=== PATIENT | male | born 1985 | race Caucasian/White ===

== ENCOUNTER → 2016-04-27 | Outpatient (CLI) | payer OTHER ==
[~2016-04-27] MED LIST: ASTN; BECL1AER5 NAE; CLR10 PO; EFF/375 PO; FLUT0.15 NAE; FLUT1INH7 INH; LANS30CA12 PO; OLOP0.6S NAE; ONDA4TAB46 PO; OXYC-57 PO; PRVHFAIN INH; RIZA10TA18 PO; TOPI50TA16 PO; ZNTT/150 PO
[2016-04-27 15:38] LABS: C-REACTIVE PROTEIN 0.61 mg/dl (0-0.29); RHEUMATOID FACTOR < 10.0 U/mL (0-15)
[2016-04-27 15:52] LABS: LYME DISEASE AB IGG NEG (NEG); LYME DISEASE AB IGM NEG (NEG)
[2016-04-30 22:33] LABS: LUPUS ANTICOAGULANT** TC36573X Negative (Negative)
== END | disposition home or self-care (01) ==
LOC: C.LAB 13:05
PROVIDERS: ATTEND Psychiatry & Neurology Neurology
DX: G43.909 Migraine, unspecified, not intractable, without status migrainosus (principal); Z82.3 Family history of stroke

== ENCOUNTER → 2016-09-17 | Day surgery (SDC) | payer OTHER ==
[2016-09-07 07:51] VITALS: Ht 185.4 cm; Wt 70.5 kg
--- NOTE | 2016-09-16 08:38 | History and Physical: Surg Cnt ---
History & Physical Date Sep 16, 2016. Chief Complaint polyposis History of Present Illness The patient is a 30 year old male with complaints of Past Medical/Surgical History asthma Additional History Hepatic Disease: No Endocrine Disorder: No Kidney Disease: No Hypertension: No Heart Disease: No Bleeding Tendencies: No Infectious Diseases: No Allergies Coded Allergies: Aspirin (Verified Allergy, Unknown, HIVES, WHEEZING, SOB, 09/07/16) NSAIDs (Verified Allergy, Unknown, HIVES, WHEEZING, SOB, 09/07/16) Penicillins (Verified Allergy, Unknown, HIVES, WHEEZING, SOB, 09/07/16) Sulfamethoxazole w/Trimethoprim (Verified Allergy, Unknown, HIVES, WHEEZING, SOB, 09/07/16) Home Medications Scheduled Albuterol (Ventolin Hfa), 2 PUFFS INH BID Fluticasone Furoate-Vilanterol (Breo Ellipta 200-25 Mcg/INH), 1 PUFF INH BID Fluticasone Propionate (Nasal) (Flonase Allergy Relief), 2 SPRAYS SHLOMO BID Loratadine (Claritin), 10 MG PO QAM Olopatadine Hcl (Nasal) (Patanase), 2 SPRY SHLOMO BID Venlafaxine Hcl (Effexor), 37.5 MG PO QAM Scheduled PRN Rizatriptan Benzoate (Maxalt), 10 MG PO UD PRN for Migraine Physical Examination Skin: warm/dry, no rash Eyes: normal inspection, EOMI, sclerae normal ENT: normal ENT inspection, pharynx normal Head: normocephalic, atraumatic Neck: supple, no adenopathy, trachea midline Respiratory/Chest: lungs clear, normal breath sounds, no respiratory distress Cardiovascular: regular rate, rhythm, no edema, no murmur Abdomen / GI: normal bowel sounds, non tender Back: normal inspection Extremities: normal inspection, normal range of motion Neurologic/Psych: no motor/sensory deficits, alert, normal reflexes, oriented x 3 Diagnosis polyposis Plan of Treatment endoscopic sinus surgery
[~2016-09-17] VITALS: Ht 185.4 cm; Wt 70.5 kg
[~2016-09-17] MED LIST changes: +ATROPINE SULFATE 0.1 MG/ML 5ML SYR IV PRN; +CEFAZOLIN 1000MG/55 ML D5W IV SCH; +CEFAZOLIN SOD 1 GM VIAL ONE; +CIPR-255 PO; +DEXAMETHASONE SOD INJ 4 MG/ML VIAL ONE; +EpHEDrine SULFATE INJ 50 MG/ML AMP IV PRN; +EpINEphrine INJ 1MG/ML AMP 1 MG/ML AMP ONE; +FENTANYL CITRATE INJ 50 MCG/1 ML 2 ML VIAL ONE; +LACTATED RINGER'S 1000ML 1,000 ML IV SCH; +LIDO 2%/EPINEPHRINE 1:100000 20 ML VIAL INFIL ONE; +LIDOCAINE 4% MPF SOAK 5 ML = 1 DOSE TOP ONE; +LIDOCAINE HCL 2% 2 ML VIAL (20MG/ML) ONE; +METR500T PO; +MIDAZOLAM HCL 1 MG/ML 2ML VIAL ONE; -ONDA4TAB46 PO; +ONDANSETRON INJ 2 MG/ML 2 ML VIAL IV PRN; +ONDANSETRON INJ 2 MG/ML 2 ML VIAL ONE; +OXYCODONE/ACETAMINOPHEN 5-325 TAB PO PRN; +OXYMETAZOLINE HCL 0.05% NA SPR 15 ML BTL SCH; +PROMETHAZINE HCL INJ 6.25 MG in SODIUM CHLORIDE 0.9% 50ML 50 ML IV PRN; +PROPOFOL IV EMULSION 10 MG/ML 20 ML VIAL IV ONE; +SODIUM CHLORIDE 0.9% 1000ML 1,000 ML IV SCH; -TOPI50TA16 PO
--- NOTE | 2016-09-17 08:25 | History & Physical Bridge Note ---
H&P Re-Evaluation Bridge Note: I have examined the patient, reviewed the History & Physical and in the interval since the performance of the History & Physical I have noted the following changes of clinical significance: No changes noted
--- NOTE | 2016-09-17 10:13 | Discharge Instructions-SurgCtr ---
Discharge Instructions Date of Service Sep 17, 2016. Visit Reason for Visit: Chronic Sinusitis, Polyps Discharge Discharge Diagnosis / Problem: VANITA Discharge Goals Goal(s): Improve function Medications Stopped Medications Name(s): allergy to blood thinners Activity Recommendations Activity Limitations: resume your previous activity Anesthesia . Post Anesthesia Instructions: If you have had General Anesthesia or IV Sedation: * Do not drive today. * Resume driving when surgeon permits. * Do not make important decisions or sign legal documents today. * Call surgeon for: 1. Temperature elevations greater than 101 degrees F. 2. Uncontrollable pain. 3. Excessive bleeding. 4. Persistent nausea and vomiting. 5. Medication intolerance (nausea, vomiting or rash). * For nausea and vomiting use only clear liquids such as: tea, soda, bouillon until nausea subsides, then gradually increase diet as tolerated. * If you have any concerns or questions, call your surgeon's office. If physician is unavailable and it is an emergency, call 911 or go to the nearest emergency room. . Instructions / Follow-Up Instructions / Follow-Up ACTIVITY RECOMMENDATIONS: * Being up and around is good, but no strenuous activity, heavy lifting or physical exertion for one week. * Keep your head elevated 30 degrees when lying down or sleeping. * Do not blow your nose for 48 hours, sniff back instead. * Avoid hot showers. OVER THE COUNTER MEDICATIONS: * You may use Tylenol * Avoid aspirin or aspirin containing products, e.g. as they may increase bleeding. SPECIAL CARE INSTRUCTIONS: * Expect to have bloody drainage from your nose and/or down your throat for one to three days. Change drip pad as needed. * Begin irrigating your nose with saline solution today, at least six to ten times per day and sniff back to help remove old clots or crust. * You may experience nasal and facial congestion, pain and pressure, this is normal. * Please call with any significant and/or progressive pain, redness, swelling around the eyes, visual changes, fever of 101.5 degrees F, active bleeding or any problems or concerns. * If active bleeding occurs, spray the nose three times at one minute intervals with Afrin spray and call or cell phone: . If unable to reach the doctor, go to the nearest Emergency Department. Special Diet: * Avoid extremely hot fluids. FOLLOW UP VISIT: Follow-up Visit with Dr. Frye If not already scheduled, please call to schedule. Diet Recommendations Home Diet: no limitations Pending Studies Studies pending at discharge: no Medical Emergencies . Who to Call and When: Medical Emergencies: If at any time you feel your situation is an emergency, please call 911 immediately. . Non-Emergent Contact Non-Emergency issues call your: Primary Care Provider . . "Provider Documentation" section prepared by Jie Frye. . [place] Drug Monitoring Program Search Results: no issues identified
[2016-09-17] MEDS: FENTANYL CITRATE INJ 50 MCG/1 ML 2 ML VIAL IV PRN ×2 (11:42→12:03)
--- NOTE | 2016-09-17 11:49 | OPERATIVE REPORT ---
DATE OF OPERATION: 09/17/2016 PREOPERATIVE DIAGNOSIS: Chronic sinusitis and nasal polyposis. POSTOPERATIVE DIAGNOSIS: Same. PROCEDURE: Right and left frontal, right and left sphenoid, right and left total ethmoid and right and left maxillary sinus antrostomies. SURGEON: Dr. Frye. ANESTHESIA: General LMA. COMPLICATIONS: None. BLOOD LOSS: 30 mL. HISTORY OF PRESENT ILLNESS: A 30-year-old gentleman with significant recurrent chronic sinusitis with polyposis. He had 2 previous surgeries in [place] at the [facility]. He continues to have recurrence of polyps after surgery by me 2 years ago. OPERATION AND FINDINGS: PROCEDURE: The patient was brought to the operating room and placed in supine position. General anesthesia was induced using LMA, prepped, draped in usual sterile manner. Nose decongested using topical cottonoids with a solution of 4 mL of 4% Xylocaine with 1 mL of epinephrine. Injection of 2% Xylocaine 1:100,000 strength epinephrine was also used. The right sphenoid cannulated guidewire, dilated using the 6 mm balloon with Huy [place] computer guidance as was the left sphenoid. The sphenoid were irrigated and suctioned clean. The right nasal frontal duct was cannulated with guidewire, dilated using the 6 mm balloon. The guidewire was left in place as a marker. The shaver was coupled with Huy [place] device and used to remove the polyps from the entire ethmoid cavity and also freeing up the adhesions from the middle turbinates covering the nasofrontal duct opening up the nasofrontal duct. The maxillary sinus was opened by removing adhesions and polyps covering the wide antrostomy from his previous surgery. The sphenoid also had to be opened, removing adhesions on the medial side of the wide sphenoidotomy from his previous surgery connecting this to his natural sphenoid ostia. The left frontal sinusotomy, sphenoidotomy, total ethmoidectomy and maxillary sinus antrostomy was performed in a similar manner, again removing multiple polyps. Cultures were taken and Propel stents were placed with 1 mini stent in each nasofrontal duct and 1 regular stent extending in the ethmoid cavity extending from the sphenoid ostia to the maxillary sinus ostia. The patient tolerated the procedure well and was taken to recovery area in satisfactory condition. I attest to the content of the Intraoperative Record and any orders documented therein. Any exception s are noted below.
--- NOTE | 2016-09-17 12:58 | Anesthesia Progress Nt - [facility] ---
Anesthesia Post Op Note Date & Time Sep 17, 2016 at 12:57 Vital Signs Vital Signs Past 12 Hours Date Time Temp Pulse Resp B/P (MAP) Pulse Ox O2 Delivery O2 Flow Rate FiO2 09/17/16 12:25 36.5 67 16 127/85 (99) 99 Room Air 67 09/17/16 12:20 133/90 09/17/16 12:17 64 10 09/17/16 12:17 63 10 100 09/17/16 12:15 36.4 09/17/16 12:15 129/89 09/17/16 12:12 69 20 09/17/16 12:12 67 20 100 09/17/16 12:11 127/95 09/17/16 12:07 61 14 09/17/16 12:07 60 14 100 09/17/16 12:05 130/99 09/17/16 12:02 56 20 100 09/17/16 12:02 58 20 09/17/16 12:01 136/89 09/17/16 11:57 67 17 100 09/17/16 11:57 69 17 09/17/16 11:55 129/94 09/17/16 11:52 65 19 09/17/16 11:52 67 19 100 09/17/16 11:50 139/95 09/17/16 11:47 67 13 100 09/17/16 11:47 67 13 09/17/16 11:45 129/95 09/17/16 11:42 62 19 100 09/17/16 11:42 62 19 09/17/16 11:40 128/96 09/17/16 11:37 66 15 09/17/16 11:37 63 15 100 09/17/16 11:35 140/99 09/17/16 11:32 74 17 94 09/17/16 11:32 73 17 09/17/16 11:30 36.3 70 16 135/97 100 Humidified Oxygen 8 Diffusion Mask 09/17/16 09:03 36.4 87 16 113/78 (90) 97 Room Air Notes Mental Status: alert / awake / arousable, participated in evaluation Pt Amnestic to Procedure: Yes Nausea / Vomiting: adequately controlled Pain: adequately controlled Airway Patency, RR, SpO2: stable & adequate BP & HR: stable & adequate Hydration State: stable & adequate Anesthetic Complications: no major complications apparent
[2016-09-17 13:00] VITALS: BP 131/84; PULSE 61; O2SAT 98
== END | disposition home or self-care (01) ==
LOC: X.SURG 08:48
PROVIDERS: ATTEND Otolaryngology
DX: J32.9 Chronic sinusitis, unspecified (principal); J33.9 Nasal polyp, unspecified; J45.909 Unspecified asthma, uncomplicated; Z88.0 Allergy status to penicillin; Z88.2 Allergy status to sulfonamides; Z68.20 Body mass index [BMI] 20.0-20.9, adult; Z87.891 Personal history of nicotine dependence

== ENCOUNTER 2016-12-03 12:22 | Emergency (ER) | payer OTHER ==
[~2016-12-03] VITALS: Ht 180.3 cm; Wt 65.6 kg
[~2016-12-03 12:22] MED LIST changes: -ATROPINE SULFATE 0.1 MG/ML 5ML SYR IV PRN; -BECL1AER5 NAE; -CEFAZOLIN 1000MG/55 ML D5W IV SCH; -CEFAZOLIN SOD 1 GM VIAL ONE; -CIPR-255 PO; -DEXAMETHASONE SOD INJ 4 MG/ML VIAL ONE; -EpHEDrine SULFATE INJ 50 MG/ML AMP IV PRN; -EpINEphrine INJ 1MG/ML AMP 1 MG/ML AMP ONE; -FENTANYL CITRATE INJ 50 MCG/1 ML 2 ML VIAL ONE; -LACTATED RINGER'S 1000ML 1,000 ML IV SCH; -LANS30CA12 PO; -LIDO 2%/EPINEPHRINE 1:100000 20 ML VIAL INFIL ONE; -LIDOCAINE 4% MPF SOAK 5 ML = 1 DOSE TOP ONE; -LIDOCAINE HCL 2% 2 ML VIAL (20MG/ML) ONE; -METR500T PO; -MIDAZOLAM HCL 1 MG/ML 2ML VIAL ONE; -ONDANSETRON INJ 2 MG/ML 2 ML VIAL IV PRN; -ONDANSETRON INJ 2 MG/ML 2 ML VIAL ONE; -OXYCODONE/ACETAMINOPHEN 5-325 TAB PO PRN; -OXYMETAZOLINE HCL 0.05% NA SPR 15 ML BTL SCH; -PROMETHAZINE HCL INJ 6.25 MG in SODIUM CHLORIDE 0.9% 50ML 50 ML IV PRN; -PROPOFOL IV EMULSION 10 MG/ML 20 ML VIAL IV ONE; -SODIUM CHLORIDE 0.9% 1000ML 1,000 ML IV SCH; -ZNTT/150 PO
[2016-12-03 12:25] VITALS: TEMP 36.4; Ht 180.3 cm; Wt 65.6 kg
[2016-12-03] MEDS ORDERED: SODIUM CHLORIDE 0.9% 1000ML 1,000 ML IV STA (12:41)
[2016-12-03] MEDS ORDERED: MoRPHine SULFATE 4 MG/ML 1 ML CARP\\VIAL IV STA ×2 (12:41→13:51)
[2016-12-03] MEDS ORDERED: ONDANSETRON INJ 2 MG/ML 2 ML VIAL IV STA (12:41)
--- NOTE | 2016-12-03 12:58 | EMERGENCY ROOM VISIT NOTE ---
History First contact with patient: 12:31 Chief Complaint: ABDOMINAL PAIN Stated Complaint: ABDOMINAL PAIN Nursing Triage Summary: abdominal pain and nausea for the past 5 days. I tried to get my meds refilled but faby lovett silverio no sent the perscriptions History of Present Illness The patient is a 31 year old male who presents to the Emergency Room with complaints of epigastric and generalized abdominal pain for the past 5 days. He reports the pain as sharp and stabbing, radiates from the epigastric area to the left upper quadrant and down towards the left lower abdomen, 8/10. He also reports associated nausea with vomiting bile last night. Some associated chills , but denies any fevers, denies diarrhea or constipation or blood in the stool, denies urinary symptoms. He does report a history of stomach ulcers requiring hospital admission about one year ago, he does not know why they admitted him. He states that this pain feels similar to the last time when he had ulcers in his stomach. He denies any NSAID use, alcohol use, and states he takes Pepcid daily. He reports history of cholecystectomy. Review of Systems A complete 10 point review of systems was reviewed with the patient with pertinent positives and negatives as per history of present illness. All else were negative. Past Medical/Surgical History Peptic ulcer disease, GERD, Samter's triad syndrome, cholecystectomy, severe allergies Social History Smoking Status: Never Smoker Current/Historical Medications Scheduled Albuterol (Ventolin Hfa), 2 PUFFS INH BID Azelastine Hcl (Astelin Nasal [place]), 1-2 SPRAYS NA BID Fluticasone Furoate-Vilanterol (Breo Ellipta 200-25 Mcg/INH), 1 PUFF INH BID Fluticasone Propionate (Nasal) (Flonase Allergy Relief), 2 SPRAYS SHLOMO BID Loratadine (Claritin), 10 MG PO QAM Venlafaxine Hcl (Effexor), 37.5 MG PO QAM Scheduled PRN Rizatriptan Benzoate (Maxalt), 10 MG PO UD PRN for Migraine Allergies Coded Allergies: Aspirin (Verified Allergy, Severe, HIVES, WHEEZING, SOB, 12/03/16) NSAIDs (Verified Allergy, Severe, HIVES, WHEEZING, SOB, 12/03/16) Penicillins (Verified Allergy, Severe, HIVES, WHEEZING, SOB, 12/03/16) Sulfamethoxazole w/Trimethoprim (Verified Allergy, Severe, HIVES, WHEEZING , SOB, 12/03/16) Physical Exam Vital Signs Date Time Temp Pulse Resp B/P (MAP) Pulse Ox O2 Delivery O2 Flow Rate FiO2 12/03/16 16:01 68 18 127/83 98 Room Air 12/03/16 14:26 83 18 140/82 100 Room Air 12/03/16 13:54 95 20 125/84 100 Room Air 12/03/16 13:27 72 12/03/16 13:06 83 20 133/90 99 Room Air 12/03/16 12:25 36.4 96 18 132/89 98 Room Air Physical Exam CONSTITUTIONAL: No acute distress, but does appear to be in pain. Mildly dehydrated. Alert and oriented X 4 with normal affect. HEENT: Normocephalic, atraumatic. Pupils equal, round and reactive to light, EOMI. TMs normal. Pharynx normal. Dry mucous membranes. NECK: Supple, full active range of motion without discomfort. RESPIRATORY: Clear to auscultation bilaterally with no wheezing, crackles, rhonchi or stridor. Equal expansion bilaterally. CARDIOVASCULAR: Regular rate and rhythm with no murmurs, rubs or gallops. Normal peripheral perfusion. No edema. GASTROINTESTINAL: Diffuse abdominal tenderness in all quadrants, most tender in the epigastric and left upper quadrant to palpation, with some guarding, negative for rebound tenderness. Soft, nondistended. Hypoactive bowel sounds present in all quadrants. MUSCULOSKELETAL: Full range of motion of all joints without discomfort. INTEGUMENTARY: No rash or other significant dermatologic conditions noted. NEUROLOGIC: Cranial nerves II-XII grossly intact. No focal neurologic deficits noted. Medical Decision & Procedures ER Provider Diagnostic Interpretation: CHEST 1 VW FRONT-NOT PORTABLE CLINICAL HISTORY: upright chest, eval abd free air COMPARISON STUDY: No previous studies for comparison. FINDINGS: Lungs are considered clear. Increase in density left base secondary to partial elevation left hemidiaphragm versus left basilar atelectasis. No secondary evidence for free air. IMPRESSION: No evidence for free air. Atelectasis versus elevation left hemidiaphragm left lung base. ----- CT OF THE ABDOMEN AND PELVIS WITH CONTRAST CLINICAL HISTORY: Acute epigastric pain. History of gastric ulcers. Evaluate for perforation. COMPARISON STUDY: None. TECHNIQUE: Following IV administration of 93 mL of Optiray-320, axial images of the abdomen and pelvis were obtained from the lung bases to the proximal femurs. Images were reviewed in the axial, sagittal, and coronal planes. IV contrast was administered without complication. A dose lowering technique was utilized adhering to the principles of ALARA. Oral contrast was administered. CT DOSE: 434.97 mGycm FINDINGS: There is no biliary ductal dilatation status post cholecystectomy. The liver, spleen, adrenal glands, kidneys and pancreas are normal with the exception of a 1 cm left renal cyst. There is no pancreatic ductal dilatation. There is no peripancreatic infiltration. No pneumatosis, free air or portal venous gas is present. The caliber and wall thickness of small and large bowel are normal. The appendix is normal. There is no free fluid. There is no lymphadenopathy. Skeletal structures are unremarkable. IMPRESSION: 1. No acute process within the abdomen or pelvis. No pneumoperitoneum. 2. 1 cm left renal cyst. 3. No biliary ductal dilatation status post cholecystectomy. 4. Normal appendix. Laboratory Results 12/03/16 12:50 Red Blood Count 4.52, Mean Corpuscular Volume 99.1, Mean Corpuscular Hemoglobin 33.6, Mean Corpuscular Hemoglobin Concent 33.9, Mean Platelet Volume 10.1, Neutrophils (%) (Auto) 63.6, Lymphocytes (%) (Auto) 15.6, Monocytes (%) (Auto) 9.5, Eosinophils (%) (Auto) 9.8, Basophils (%) (Auto) 0.4, Neutrophils # (Auto) 3.56, Lymphocytes # (Auto) 0.87, Monocytes # (Auto) 0.53, Eosinophils # (Auto) 0.55, Basophils # (Auto) 0.02 12/03/16 12:50 Test 12/03/16 12:50 12/03/16 12:55 White Blood Count 5.59 K/uL (4.8-10.8) Red Blood Count 4.52 M/uL (4.7-6.1) Hemoglobin 15.2 g/dL (14.0-18.0) Hematocrit 44.8 % (42-52) Mean Corpuscular Volume 99.1 fL (80-100) Mean Corpuscular Hemoglobin 33.6 pg (25-34) Mean Corpuscular Hemoglobin Concent 33.9 g/dl (32-36) Platelet Count 202 K/uL (130-400) Mean Platelet Volume 10.1 fL (7.4-10.4) Neutrophils (%) (Auto) 63.6 % Lymphocytes (%) (Auto) 15.6 % Monocytes (%) (Auto) 9.5 % Eosinophils (%) (Auto) 9.8 % Basophils (%) (Auto) 0.4 % Neutrophils # (Auto) 3.56 K/uL (1.4-6.5) Lymphocytes # (Auto) 0.87 K/uL (1.2-3.4) Monocytes # (Auto) 0.53 K/uL (0.11-0.59) Eosinophils # (Auto) 0.55 K/uL (0-0.5) Basophils # (Auto) 0.02 K/uL (0-0.2) RDW Standard Deviation 43.6 fL (36.4-46.3) RDW Coefficient of Variation 12.1 % (11.5-14.5) Immature Granulocyte % (Auto) 1.1 % Immature Granulocyte # (Auto) 0.06 K/uL (0.00-0.02) Anion Gap 7.0 mmol/L (3-11) Est Creatinine Clear Calc Drug Dose 101.2 ml/min Estimated GFR () 118.0 Estimated GFR (Non- 101.8 BUN/Creatinine Ratio 14.2 (10-20) Calcium Level 9.4 mg/dl (8.5-10.1) Total Bilirubin 0.8 mg/dl (0.2-1) Direct Bilirubin 0.2 mg/dl (0-0.2) Aspartate Amino Transf (AST/SGOT) 22 U/L (15-37) Alanine Aminotransferase (ALT/SGPT) 26 U/L (12-78) Alkaline Phosphatase 67 U/L (45-117) Total Protein 7.8 gm/dl (6.4-8.2) Albumin 4.1 gm/dl (3.4-5.0) Lipase 88 U/L (73-393) Urine Color DK YELLOW Urine Appearance CLEAR (CLEAR) Urine pH 5.5 (4.5-7.5) Urine Specific [place] > 1.045 (1.000-1.030) Urine Protein 1+ (NEG) Urine Glucose (UA) NEG (NEG) Urine Ketones NEG (NEG) Urine Occult Blood NEG (NEG) Urine Nitrite NEG (NEG) Urine Bilirubin NEG (NEG) Urine Urobilinogen NEG (NEG) Urine Leukocyte Esterase NEG (NEG) Urine WBC (Auto) 1-5 /hpf (0-5) Urine RBC (Auto) 0-4 /hpf (0-4) Urine Hyaline Casts (Auto) 5-10 /lpf (0-5) Urine Epithelial Cells (Auto) 20-30 /lpf (0-5) Urine Bacteria (Auto) NEG (NEG) Medications Administered Medications (Trade) Dose Ordered Sig/Manuela Route Start Time Stop Time Status Last Admin Dose Admin Sodium Chloride 1,000 ml @ 999 mls/hr Q1H1M STAT IV 12/03/16 12:41 12/03/16 13:41 DC 12/03/16 13:05 999 MLS/HR Ondansetron HCl (Zofran Inj) 4 mg NOW STAT IV 12/03/16 12:41 12/03/16 12:45 DC 12/03/16 13:04 4 MG Morphine Sulfate (MoRPHine SULFATE INJ) 4 mg NOW STAT IV 12/03/16 12:41 12/03/16 12:45 DC 12/03/16 13:04 4 MG Morphine Sulfate (MoRPHine SULFATE INJ) 4 mg NOW STAT IV 12/03/16 13:51 12/03/16 13:52 DC 12/03/16 13:52 4 MG Ranitidine HCl (zANTac IV) 50 mg NOW STAT IV 12/03/16 14:01 12/03/16 14:03 DC 12/03/16 14:24 50 MG Al Hydroxide/Mg Hydroxide (Maalox Susp) 30 ml STK-MED ONCE .ROUTE 12/03/16 16:03 12/03/16 16:04 DC 12/03/16 16:08 30 ML Lidocaine HCl (Viscous Lidocaine 2% Soln) 20 ml STK-MED ONCE .ROUTE 12/03/16 16:03 12/03/16 16:04 DC 12/03/16 16:08 20 ML Medical Decision CC: Patient presenting with complaint of epigastric pain, nausea and vomiting Interpretation of Labs: No leukocytosis, no anemia, no significant joint abnormalities, normal renal function, normal liver enzymes and lipase, UA shows high specific gravity, otherwise negative. Differential Diagnosis: Includes, but not limited to gastritis, gastroenteritis , pancreatitis, PUD, choledocholithiasis, diverticulitis, small bowel obstruction, bowel perforation, among others. Medication Reconciliation: I attest that I have personally reviewed the patient' s current medication list. Vital signs review: I reviewed the patient's vital signs and interpret them as follows: T: Afebrile; BP: Initially Hypertensive, improved with pain control; HR: Tachycardic; RR: Within normal limits; Pulse Ox: Within normal limits on room air. Summary: Patient was evaluated at bedside, history of physical exam performed. Patient is alert and in no acute distress, but does appear quite uncomfortable. He is resting in a stretcher, holding his upper abdomen. He is most tender in the epigastric and left upper quadrant of his abdomen, but does complain of diffuse generalized tenderness of the abdomen. Abdomen is soft and nondistended, not rigid or any peritoneal signs noted. No rebound tenderness. Orders were placed at bedside for labs, UA, IV fluids for hydration, IV pain and nausea medications, upright chest x-ray to evaluate for free air, CT abdomen /pelvis with IV and oral contrast to evaluate for bowel perforation, small bowel obstruction, etc. Patient discussed with Dr. Atwood, who agrees with my assessment and plan. Labs reviewed as above, no significant abnormalities. Chest x-ray reviewed, no evidence of free air. CT imaging reviewed, no acute abnormalities to explain patient's pain. Patient reassessed multiple times throughout ED stay, he did initially require multiple doses of nausea and pain medications, but did eventually have improvement. He was also given a GI cocktail, which she states improved his pain. I updated the patient on all results and plan for discharge. I informed him that he would need to follow up closely with his GI provider, Dr. Aguilera, and that he may need to have an endoscopy procedure for further evaluation of his symptoms. At this point, the patient became angry stating, "so you're not been a do anything for me?" and started pulling off his EKG stickers and trying to remove his IV. He also stated that his GI doctor refused to refill his Prevacid and he has been out of it for several days and has not been taking it. I did discuss with the patient that his antacid medications are available over- the-counter, and encouraged him to pick these up and restart taking them. Patient agreed to plan of restarting his Prevacid and to calling his GI doctor for follow-up appointment. I did also discuss return precautions with the patient, he verbalized understanding. She was discharged home in stable condition and ambulatory. Impression Primary Impression: Epigastric abdominal pain Additional Impression: Nausea and vomiting Departure Information Dispostion Home / Self-Care Condition GOOD Referrals Alexandra Fletcher M.D. (PCP) Giovana Aguilera D.O. Patient Instructions ED PUD Vs Gastritis, My [facility] Additional Instructions You have been treated in the Emergency Department your Abdominal Pain. Laboratory results and imaging studies have ruled out any emergent causes for your abdominal pain which would warrant admission or surgery. You should continue taking Prevacid as previously prescribed. This is now an [id number] medication and you can buy at any pharmacy without a prescription. You should also start taking ranitidine 150 mg twice a day. This is also over- the-counter and is a different type of antacid medication that should help to control your symptoms better while you restart the Prevacid. For breakthrough symptoms of stomach pain, you may try Maalox or Mylanta to help soothe your stomach. Take as prescribed on the bottle. Avoid taking NSAIDs, as these may aggravate your stomach pain and symptoms. Drink plenty of fluids and stay well hydrated. Please call your GI doctor tomorrow to set up a follow-up appointment. You may need to have an endoscopy procedure to further evaluate her symptoms, this should be set up through your GI doctor. Return to the emergency department if your symptoms persist despite treatment plan outlined above or if the following symptoms occur: Severe worsening pain, fevers/chills, worsening nausea/vomiting, vomiting bright red blood, blood in your stool or urine. Work Instructions Return To Work: 2 days Problem Qualifiers Additional Impression: Nausea and vomiting Vomiting type: unspecified Vomiting Intractability: non-intractable Qualified Codes: R11.2 - Nausea with vomiting, unspecified
[2016-12-03 13:08] LABS: URINE APPEARANCE CLEAR (CLEAR); URINE COLOR DK YELLOW; URINE EPITHELIAL CELL AUTO 20-30 /lpf (0-5); URINE NITRITE NEG (NEG); URINE PH 5.5 (4.5-7.5); URINE SPECIFIC GRAVITY > 1.045 (1.000-1.030); UROBILINOGEN NEG (NEG); ZZUR CULT IF INDIC CLEAN CATCH NO
[2016-12-03 13:12] LABS: BASO % 0.4 %; BASO ABS # 0.02 K/uL (0-0.2); COMPLETE YES; EOS % 9.8 %; HEMATOCRIT 44.8 % (42-52); IG% 1.1 %; LYMPH % 15.6 %; LYMPH ABS # 0.87 K/uL (1.2-3.4); MEAN CELL VOLUME 99.1 fL (80-100); MEAN CORPUSCULAR HEMOGLOBIN 33.6 pg (25-34); MEAN CORPUSCULAR HGB CONC 33.9 g/dl (32-36); MEAN PLATELET VOLUME 10.1 fL (7.4-10.4); MONO % 9.5 %; NEUT % 63.6 %; PLATELET COUNT 202 K/uL (130-400); RED BLOOD COUNT 4.52 M/uL (4.7-6.1); WHITE BLOOD COUNT 5.59 K/uL (4.8-10.8)
[2016-12-03 13:20] LABS: MANUAL MICROSCOPIC REQUIRED? NO; REVIEW REQ? NO; URINE BILIRUBIN NEG (NEG)
[2016-12-03 13:30] LABS: BUN/CREATININE RATIO 14.2 (10-20); CALCIUM 9.4 mg/dl (8.5-10.1); CREATININE 0.99 mg/dl (0.60-1.40); POTASSIUM 4.2 mmol/L (3.5-5.1)
[2016-12-03] MEDS ORDERED: RANITIDINE HCL 50 MG/100 ML D5W IV STA (14:01)
--- NOTE | 2016-12-03 14:16 | DIAGNOSTIC IMAGING REPORT ---
CHEST 1 VW FRONT-NOT PORTABLE CLINICAL HISTORY: upright chest, eval abd free air COMPARISON STUDY: No previous studies for comparison. FINDINGS: Lungs are considered clear. Increase in density left base secondary to partial elevation left hemidiaphragm versus left basilar atelectasis. No secondary evidence for free air. IMPRESSION: No evidence for free air. Atelectasis versus elevation left hemidiaphragm left lung base. The above report was generated using voice recognition software. It may contain grammatical, syntax or spelling errors. Electronically signed by: Boaz Baker M.D. 12/03/2016 2:14 PM Dictated Date/Time: 12/03/2016 2:13 PM
[2016-12-03] MEDS ORDERED: OPTIRAY 320 IV PRN (15:00)
--- NOTE | 2016-12-03 15:32 | DIAGNOSTIC IMAGING REPORT ---
CT OF THE ABDOMEN AND PELVIS WITH CONTRAST CLINICAL HISTORY: Acute epigastric pain. History of gastric ulcers. Evaluate for perforation. COMPARISON STUDY: None. TECHNIQUE: Following IV administration of 93 mL of [id number], axial images of the abdomen and pelvis were obtained from the lung bases to the proximal femurs. Images were reviewed in the axial, sagittal, and coronal planes. IV contrast was administered without complication. A dose lowering technique was utilized adhering to the principles of ALARA. Oral contrast was administered. CT DOSE: 434.97 mGycm FINDINGS: There is no biliary ductal dilatation status post cholecystectomy. The liver, spleen, adrenal glands, kidneys and pancreas are normal with the exception of a 1 cm left renal cyst. There is no pancreatic ductal dilatation. There is no peripancreatic infiltration. No pneumatosis, free air or portal venous gas is present. The caliber and wall thickness of small and large bowel are normal. The appendix is normal. There is no free fluid. There is no lymphadenopathy. Skeletal structures are unremarkable. IMPRESSION: 1. No acute process within the abdomen or pelvis. No pneumoperitoneum. 2. 1 cm left renal cyst. 3. No biliary ductal dilatation status post cholecystectomy. 4. Normal appendix. Electronically signed by: Devon Fletcher M.D. 12/03/2016 3:31 PM Dictated Date/Time: 12/03/2016 3:26 PM
[2016-12-03] MEDS ORDERED: GI COCKTAIL PO STA (15:58)
[2016-12-03 16:01] VITALS: BP 127/83; PULSE 68; O2SAT 98
[2016-12-03] MEDS ORDERED: ALUMINUM/MAGNESIUM SUSP 30 ML UDC ONE (16:03)
[2016-12-03] MEDS ORDERED: LIDOCAINE HCL 2% VISC SOLN 20 ML UDC ONE (16:03)
[2016-12-07] MEDS ORDERED: LANS30CA12 PO (09:20)
[2016-12-07] MEDS ORDERED: ZNTT/150 PO (09:20)
== END 2016-12-03 16:15 | disposition home or self-care (01) ==
LOC: C.EDB 12:23
DX: R10.13 Epigastric pain (principal); R11.2 Nausea with vomiting, unspecified; Z90.49 Acquired absence of other specified parts of digestive tract; K27.9 Peptic ulcer, site unspecified, unspecified as acute or chronic, without hemorrhage or perforation; K21.9 Gastro-esophageal reflux disease without esophagitis; J98.8 Other specified respiratory disorders; Z79.899 Other long term (current) drug therapy; E86.0 Dehydration

== ENCOUNTER → 2016-12-08 | Day surgery (SDC) | payer OTHER ==
[2016-12-07 09:20] VITALS: Ht 185.4 cm; Wt 70.5 kg
[~2016-12-08] VITALS: Ht 185.4 cm; Wt 70.5 kg
[~2016-12-08] MED LIST changes: +ALUMINUM/MAGNESIUM SUSP 18 ML, LIDOCAINE HCL 2% VISCOUS SOLN 6 ML, BARCODE IDENTIFIER 1 EA PO ONE; +FENTANYL CITRATE INJ 50 MCG/1 ML 2 ML VIAL ONE; +GI COCKTAIL PO ONE; +LANS30CA12 PO; -OLOP0.6S NAE; +ONDANSETRON INJ 2 MG/ML 2 ML VIAL ONE; -OXYC-57 PO; +PROPOFOL IV EMULSION 10 MG/ML 20 ML VIAL IV ONE; +ZNTT/150 PO
[2016-12-08 11:07] VITALS: TEMP 36.9
--- NOTE | 2016-12-08 11:47 | Endo History and Physical ---
History & Physical Date of Service: Dec 08, 2016. Chief Complaint: Reflux, RUQ pain, N/V, Eosinophilic Referring Physician: Alexandra Fletcher History of Present Illness 31 yo CM who presents for EGD secondary to RUQ abdominal pain and GERD. Past Surgical History Hx Cardiac Surgery: No Hx Internal Defibrillator: No Hx Pacemaker: No Hx Abdominal Surgery: Yes (LAP DELILAH) Hx of Implantable Prosthesis: No Hx Post-Op Nausea and Vomiting: No Hx Cancer Surgery: No Hx Thoracic Surgery: No Hx Orthopedic: No Hx Urinary Tract Surgery: No Family History IBD Social History Smoking Status: Former Smoker Hx Substance Use: No Hx Alcohol Use: Yes (OCCASIONALLY) Allergies Coded Allergies: Aspirin (Verified Allergy, Severe, HIVES, WHEEZING, SOB, 12/07/16) NSAIDs (Verified Allergy, Severe, HIVES, WHEEZING, SOB, 12/07/16) Penicillins (Verified Allergy, Severe, HIVES, WHEEZING, SOB, 12/07/16) Sulfamethoxazole w/Trimethoprim (Verified Allergy, Severe, HIVES, WHEEZING , SOB, 12/07/16) Current Medications Reported Home Medications Medications Dose Route/Sig Max Daily Dose Days Date Category Dose Instructions Zantac (Ranitidine HCl) 150 Mg Tab 150 Mg PO QAM 12/07/16 Reported Prevacid (Lansoprazole) 30 Mg Capcr 30 Mg PO QAM 12/07/16 Reported Astelin Nasal [place] (Azelastine Hcl) 200 Sprays/30 Ml [place] 1-2 Sprays NA BID 09/17/16 Rx Effexor (Venlafaxine Hcl) 37.5 Mg Tab 37.5 Mg PO QAM 09/07/16 Reported Maxalt (Rizatriptan Benzoate) 10 Mg Tab 10 Mg PO UD PRN 01/31/16 Reported May take up to 3 times per day if needed Ventolin Hfa (Albuterol) 60 Puffs/5400 Mcg Aers 2 Puffs INH BID 01/22/16 Reported 90 MCG 200 METERED INH LISTED ON INHALER Claritin (Loratadine) 10 Mg Tab 10 Mg PO QAM 09/12/15 Reported Flonase Allergy Relief (Fluticasone Propionate (Nasal)) 50 Mcg/Act Spr 2 Sprays [place] BID 09/12/15 Reported Breo Ellipta 200-25 Mcg/INH (Fluticasone Furoate-Vilanterol) 1 Inh Inh 1 Puff INH BID 09/12/15 Reported Vital Signs Weight (Kilograms): 70.45 Height (Feet): 6 Height (Inches): 1 Date Time Temp Pulse Resp B/P (MAP) Pulse Ox O2 Delivery O2 Flow Rate FiO2 12/08/16 11:07 36.9 81 20 127/76 (93) 96 Room Air Physical Exam General Appearance: WD/WN, no apparent distress Respiratory/Chest: Auscultation: breath sounds normal Cardiovascular: Heart Auscultation: RRR Abdomen: Bowel Sounds: normal Inspection & Palpation: soft, non-distended, no tenderness, guarding & rebound Assessment and Plan Assessment: 31 yo CM who presents for EGD secondary to RUQ abdominal pain and GERD. Plan: Proceed with EGD.
--- NOTE | 2016-12-08 12:04 | GI REPORT ---
Procedure Date: 12/08/2016 11:47 AM Procedure: Upper GI endoscopy Indications: Abdominal pain in the right upper quadrant, Suspected gastro-esophageal reflux disease, Nausea with vomiting Medicines: Monitored Anesthesia Care Complications: No immediate complications. Estimated Blood Loss: Estimated blood loss: none. Procedure: Pre-Anesthesia Assessment: - Prior to the procedure, a History and Physical was performed, and patient medications and allergies were reviewed. The patient's tolerance of previous anesthesia was also reviewed. The risks and benefits of the procedure and the sedation options and risks were discussed with the patient. All questions were answered, and informed consent was obtained. Prior Anticoagulants: The patient has taken no previous anticoagulant or antiplatelet agents. ASA Grade Assessment: II - A patient with mild systemic disease. After reviewing the risks and benefits, the patient was deemed in satisfactory condition to undergo the procedure. After obtaining informed consent, the endoscope was passed under direct vision. Throughout the procedure, the patient's blood pressure, pulse, and oxygen saturations were monitored continuously. The scope was introduced through the mouth, and advanced to the second part of duodenum. The upper GI endoscopy was accomplished without difficulty. The patient tolerated the procedure well. Findings: The esophagus was normal. A medium amount of food (residue) was found on the greater curvature of the stomach. Localized mild inflammation characterized by erythema was found in the gastric antrum. Biopsies were taken with a cold forceps for histology. The examined duodenum was normal. Biopsies for histology were taken with a cold forceps for evaluation of celiac disease. Impression: - Normal esophagus. - A medium amount of food (residue) in the stomach. - Gastritis. Biopsied. - Normal examined duodenum. Biopsied. Recommendation: - Resume previous diet. - Continue present medications. - Await pathology results. - Do a gastric emptying study at appointment to be scheduled. - Return to GI office as previously scheduled. Jacob Mckenna, 12/08/2016 12:04:38 PM This report has been signed electronically. Note Initiated On: 12/08/2016 11:47 AM I attest to the content of the Intraoperative Record and orders documented therein, exceptions below
--- NOTE | 2016-12-08 12:08 | Discharge Instructions ---
Endoscopy Patient Instructions Date / Procedure(s) Performed Dec 08, 2016. EGD Allergy Information Coded Allergies: Aspirin (Verified Allergy, Severe, HIVES, WHEEZING, SOB, 12/07/16) NSAIDs (Verified Allergy, Severe, HIVES, WHEEZING, SOB, 12/07/16) Penicillins (Verified Allergy, Severe, HIVES, WHEEZING, SOB, 12/07/16) Sulfamethoxazole w/Trimethoprim (Verified Allergy, Severe, HIVES, WHEEZING , SOB, 12/07/16) Discharge Date / Findings Dec 08, 2016. Mild Gastritis s/p biopsies Retained gastric contents Medication Instructions OK to resume all medications today as prescribed Reported Home Medications Medications Dose Route/Sig Max Daily Dose Days Date Category Dose Instructions Zantac (Ranitidine HCl) 150 Mg Tab 150 Mg PO QAM 12/07/16 Reported Prevacid (Lansoprazole) 30 Mg Capcr 30 Mg PO QAM 12/07/16 Reported Astelin Nasal [place] (Azelastine Hcl) 200 Sprays/30 Ml [place] 1-2 Sprays NA BID 09/17/16 Rx Effexor (Venlafaxine Hcl) 37.5 Mg Tab 37.5 Mg PO QAM 09/07/16 Reported Maxalt (Rizatriptan Benzoate) 10 Mg Tab 10 Mg PO UD PRN 01/31/16 Reported May take up to 3 times per day if needed Ventolin Hfa (Albuterol) 60 Puffs/5400 Mcg Aers 2 Puffs INH BID 01/22/16 Reported 90 MCG 200 METERED INH LISTED ON INHALER Claritin (Loratadine) 10 Mg Tab 10 Mg PO QAM 09/12/15 Reported Flonase Allergy Relief (Fluticasone Propionate (Nasal)) 50 Mcg/Act Spr 2 Sprays [place] BID 09/12/15 Reported Breo Ellipta 200-25 Mcg/INH (Fluticasone Furoate-Vilanterol) 1 Inh Inh 1 Puff INH BID 09/12/15 Reported Provider Instructions Activity Restrictions - No exercising or heavy lifting for 24 hours. - Do not drink alcohol the day of the procedure. - Do not drive a car or operate machinery until the day after the procedure. - Do not make any important decisions or sign important papers in 24 hours after the procedure. Following Day: - Return to full activity which may include returning to work/school. Diet Start your diet with liquids and light foods (jello, soup, juice, toast). Then eat your usual diet if not nauseated. Treatment For Common After Affects For mild abdominal pain, bloating, or excessive gas: - Rest - Eat lightly - Lie on right side Follow-Up Information Follow-up with Alexandra Fletcher as scheduled Anesthesia Information What You Should Know You have had a procedure that required some medicine to reduce anxiety and discomfort. This treatment is called moderate sedation. After receiving the treatment, you may be sleepy, but you will be able to breathe on your own. The effects of the treatment may last for several hours. Follow these instructions along with Activity/Diet recommendations noted above: * Do NOT do anything where dizziness or clumsiness would be dangerous. * Rest quietly at home today, then you can be up and about tomorrow. * Have a responsible person stay with you the rest of today. * You may have had an I.V. today. If so, you may take the dressing off later today. Recommendations Call your doctor if: * Trouble breathing * Continuous vomiting for more than 24 hours * Temperature above 101 degrees * Severe abdominal pain or bloating * Pain not relieved by pain medicine ordered * There is increased drainage or redness from any incision * A large amount of rectal bleeding greater than 2-3 tablespoons. (If you had a polyp/s removed or have hemorrhoids, a small amount of blood - from the rectum is to be expected.) * You have any unanswered questions or concerns. IN THE EVENT OF A SERIOUS EMERGENCY, GO TO THE NEAREST EMERGENCY ROOM Your discharge instructions were prepared by provider Jacob Mckenna. Patient Instructions Signature Page Mario Friedman Patient (or Guardian) Signature/Date: I have read and understand the instructions given to me by my caregivers. Caregiver/RN/Doctor Signature/Date: The above-named patient and/or guardian has received patient instructions on this date. + Original Patient Signature Page (only) stays with chart. Please make copy for patient.
[2016-12-08 12:34] VITALS: BP 127/74; PULSE 78; O2SAT 97
--- NOTE | 2016-12-08 12:46 | Anesthesiology Progress Note ---
Anesthesia Post Op Note Date & Time Dec 08, 2016 at 12:45 Vital Signs Pain Intensity: 7 Vital Signs Past 12 Hours Date Time Temp Pulse Resp B/P (MAP) Pulse Ox O2 Delivery O2 Flow Rate FiO2 12/08/16 12:34 78 18 127/74 (91) 97 Room Air 12/08/16 12:19 78 18 135/83 (100) 96 Room Air 12/08/16 12:04 91 16 138/87 (104) 95 Room Air 12/08/16 11:07 36.9 81 20 127/76 (93) 96 Room Air Notes Mental Status: alert / awake / arousable, participated in evaluation Pt Amnestic to Procedure: Yes Nausea / Vomiting: adequately controlled Pain: adequately controlled, improving with treatment Airway Patency, RR, SpO2: stable & adequate BP & HR: stable & adequate Hydration State: stable & adequate Anesthetic Complications: no major complications apparent
== END | disposition home or self-care (01) ==
LOC: C.GI 10:40
PROVIDERS: ATTEND Internal Medicine
DX: K31.9 Disease of stomach and duodenum, unspecified (principal); K21.9 Gastro-esophageal reflux disease without esophagitis; Z87.891 Personal history of nicotine dependence; Z79.899 Other long term (current) drug therapy; Z83.79 Family history of other diseases of the digestive system

== ENCOUNTER → 2016-12-08 | Outpatient (CLI) | payer OTHER ==
[~2016-12-08] MED LIST changes: -ALUMINUM/MAGNESIUM SUSP 18 ML, LIDOCAINE HCL 2% VISCOUS SOLN 6 ML, BARCODE IDENTIFIER 1 EA PO ONE; -FENTANYL CITRATE INJ 50 MCG/1 ML 2 ML VIAL ONE; -GI COCKTAIL PO ONE; -ONDANSETRON INJ 2 MG/ML 2 ML VIAL ONE; -PROPOFOL IV EMULSION 10 MG/ML 20 ML VIAL IV ONE
[2016-12-11 23:42] LABS: IGA SERUM 228 mg/dL (81-463); TIS TRANS IGA 1 U/mL (<4)
== END | disposition home or self-care (01) ==
LOC: C.LAB1850 12:58
PROVIDERS: ATTEND Registered Nurse
DX: K21.9 Gastro-esophageal reflux disease without esophagitis (principal); R11.2 Nausea with vomiting, unspecified; D72.1 Eosinophilia; R10.11 Right upper quadrant pain

== ENCOUNTER → 2016-12-23 | Outpatient (CLI) | payer OTHER ==
--- NOTE | 2016-12-23 14:03 | DIAGNOSTIC IMAGING REPORT ---
NUCLEAR GASTRIC EMPTYING STUDY HISTORY: Right upper quadrant abdominal pain. COMPARISON: Abdomen and pelvis CT 12/03/2016. TECHNIQUE: Following the oral administration of 1.1 mCi of technetium 99m sulfur colloid in egg sandwich and 8 ounces of water, static abdominal images are obtained anteriorly and posteriorly at 0 minutes, 1 hour, 2 hour, and 4 hour time intervals. Gastric emptying was calculated utilizing the geometric mean method. FINDINGS: There is approximately 85% activity remaining at the 1 hour time interval (normal is less than 90%), 49% remaining at the 2 hour time interval (normal is less than 60%), and 1% activity remaining at the 4 hour time interval (normal is less than 10%). IMPRESSION: No evidence for delayed gastric emptying. Electronically signed by: Elías Magallanes M.D. 12/23/2016 2:02 PM Dictated Date/Time: 12/23/2016 1:52 PM
== END | disposition home or self-care (01) ==
LOC: C.NUCL 08:14
PROVIDERS: ATTEND Internal Medicine
DX: R10.11 Right upper quadrant pain (principal)

== ENCOUNTER → 2016-12-29 | Day surgery (SDC) | payer OTHER ==
[~2016-12-29] VITALS: Ht 185.4 cm; Wt 70.5 kg
[~2016-12-29] MED LIST changes: +PROPOFOL IV EMULSION 10 MG/ML 20 ML VIAL IV ONE; +SODIUM CHLORIDE 0.9% 500ML 500 ML IV ONE
--- NOTE | 2016-12-29 10:40 | Endo History and Physical ---
History & Physical Date of Service: Dec 29, 2016. Chief Complaint: Diarrhea and Abdominal pain Referring Physician: Alexandra Fletcher History of Present Illness 31 yo CM who presents for colonoscopy secondary to diarrhea and abdominal pain. Past Surgical History Hx Cardiac Surgery: No Hx Internal Defibrillator: No Hx Pacemaker: No Hx Abdominal Surgery: Yes (LAP DELILAH) Hx of Implantable Prosthesis: No Hx Post-Op Nausea and Vomiting: No Hx Cancer Surgery: No Hx Thoracic Surgery: No Hx Orthopedic: No Hx Urinary Tract Surgery: No Family History IBD Social History Smoking Status: Former Smoker Hx Substance Use: No Hx Alcohol Use: Yes (OCCASIONAL) Allergies Coded Allergies: Aspirin (Verified Allergy, Severe, HIVES, WHEEZING, SOB, 12/28/16) NSAIDs (Verified Allergy, Severe, HIVES, WHEEZING, SOB, 12/28/16) Penicillins (Verified Allergy, Severe, HIVES, WHEEZING, SOB, 12/28/16) Sulfamethoxazole w/Trimethoprim (Verified Allergy, Severe, HIVES, WHEEZING , SOB, 12/28/16) Current Medications Reported Home Medications Medications Dose Route/Sig Max Daily Dose Days Date Category Dose Instructions Zantac (Ranitidine HCl) 150 Mg Tab 150 Mg PO QAM 12/07/16 Reported Prevacid (Lansoprazole) 30 Mg Capcr 30 Mg PO QAM 12/07/16 Reported Astelin Nasal [place] (Azelastine Hcl) 200 Sprays/30 Ml [place] 1-2 Sprays NA BID 09/17/16 Rx Effexor (Venlafaxine Hcl) 37.5 Mg Tab 37.5 Mg PO QAM 09/07/16 Reported Maxalt (Rizatriptan Benzoate) 10 Mg Tab 10 Mg PO UD PRN 01/31/16 Reported May take up to 3 times per day if needed Ventolin Hfa (Albuterol) 60 Puffs/5400 Mcg Aers 2 Puffs INH BID 01/22/16 Reported 90 MCG 200 METERED INH LISTED ON INHALER Claritin (Loratadine) 10 Mg Tab 10 Mg PO QAM 09/12/15 Reported Flonase Allergy Relief (Fluticasone Propionate (Nasal)) 50 Mcg/Act Spr 2 Sprays [place] BID 09/12/15 Reported Breo Ellipta 200-25 Mcg/INH (Fluticasone Furoate-Vilanterol) 1 Inh Inh 1 Puff INH BID 09/12/15 Reported Vital Signs Weight (Kilograms): 70.45 Height (Feet): 6 Height (Inches): 1 Physical Exam General Appearance: WD/WN, no apparent distress Respiratory/Chest: Auscultation: breath sounds normal Cardiovascular: Heart Auscultation: RRR Abdomen: Bowel Sounds: normal Inspection & Palpation: soft, non-distended, no tenderness, guarding & rebound Assessment and Plan Assessment: 31 yo CM who presents for colonoscopy secondary to diarrhea and abdominal pain. Plan: Proceed with colonoscopy.
[2016-12-29 10:41] VITALS: Ht 185.4 cm; Wt 70.5 kg
--- NOTE | 2016-12-29 11:18 | GI REPORT ---
Procedure Date: 12/29/2016 10:56 AM Procedure: Colonoscopy Indications: Generalized abdominal pain, Chronic diarrhea Medicines: Monitored Anesthesia Care Complications: No immediate complications. Estimated Blood Loss: Estimated blood loss: none. Procedure: Pre-Anesthesia Assessment: - Prior to the procedure, a History and Physical was performed, and patient medications and allergies were reviewed. The patient's tolerance of previous anesthesia was also reviewed. The risks and benefits of the procedure and the sedation options and risks were discussed with the patient. All questions were answered, and informed consent was obtained. Prior Anticoagulants: The patient has taken no previous anticoagulant or antiplatelet agents. ASA Grade Assessment: II - A patient with mild systemic disease. After reviewing the risks and benefits, the patient was deemed in satisfactory condition to undergo the procedure. After I obtained informed consent, the scope was passed under direct vision. Throughout the procedure, the patient's blood pressure, pulse, and oxygen saturations were monitored continuously. The Scope was introduced through the anus with the intention of advancing to the ileum. The scope was advanced to the sigmoid colon before the procedure was aborted. Medications were given. The colonoscopy was aborted due to unsatisfactory bowel prep. Findings: A large amount of solid stool was found in the rectum and in the sigmoid colon, precluding visualization. Impression: - The procedure was aborted due to unsatisfactory bowel prep. - Stool in the rectum and in the sigmoid colon. - No specimens collected. Recommendation: - Resume previous diet. - Continue present medications. - Repeat colonoscopy in 6 weeks because the bowel preparation was poor. - Return to primary care physician as previously scheduled. Jacob Mckenna DO 12/29/2016 11:17:25 AM This report has been signed electronically. Note Initiated On: 12/29/2016 10:56 AM I attest to the content of the Intraoperative Record and orders documented therein, exceptions below
--- NOTE | 2016-12-29 11:18 | Discharge Instructions ---
Endoscopy Patient Instructions Date / Procedure(s) Performed Dec 29, 2016. Colonoscopy Allergy Information Coded Allergies: Aspirin (Verified Allergy, Severe, HIVES, WHEEZING, SOB, 12/28/16) NSAIDs (Verified Allergy, Severe, HIVES, WHEEZING, SOB, 12/28/16) Penicillins (Verified Allergy, Severe, HIVES, WHEEZING, SOB, 12/28/16) Sulfamethoxazole w/Trimethoprim (Verified Allergy, Severe, HIVES, WHEEZING , SOB, 12/28/16) Discharge Date / Findings Dec 29, 2016. Poor bowel prep and procedure was aborted Medication Instructions OK to resume all medications today as prescribed Reported Home Medications Medications Dose Route/Sig Max Daily Dose Days Date Category Dose Instructions Zantac (Ranitidine HCl) 150 Mg Tab 150 Mg PO QAM 12/07/16 Reported Prevacid (Lansoprazole) 30 Mg Capcr 30 Mg PO QAM 12/07/16 Reported Astelin Nasal [place] (Azelastine Hcl) 200 Sprays/30 Ml [place] 1-2 Sprays NA BID 09/17/16 Rx Effexor (Venlafaxine Hcl) 37.5 Mg Tab 37.5 Mg PO QAM 09/07/16 Reported Maxalt (Rizatriptan Benzoate) 10 Mg Tab 10 Mg PO UD PRN 01/31/16 Reported May take up to 3 times per day if needed Ventolin Hfa (Albuterol) 60 Puffs/5400 Mcg Aers 2 Puffs INH BID 01/22/16 Reported 90 MCG 200 METERED INH LISTED ON INHALER Claritin (Loratadine) 10 Mg Tab 10 Mg PO QAM 09/12/15 Reported Flonase Allergy Relief (Fluticasone Propionate (Nasal)) 50 Mcg/Act Spr 2 Sprays [place] BID 09/12/15 Reported Breo Ellipta 200-25 Mcg/INH (Fluticasone Furoate-Vilanterol) 1 Inh Inh 1 Puff INH BID 09/12/15 Reported Provider Instructions Activity Restrictions - No exercising or heavy lifting for 24 hours. - Do not drink alcohol the day of the procedure. - Do not drive a car or operate machinery until the day after the procedure. - Do not make any important decisions or sign important papers in 24 hours after the procedure. Following Day: - Return to full activity which may include returning to work/school. Diet Start your diet with liquids and light foods (jello, soup, juice, toast). Then eat your usual diet if not nauseated. Treatment For Common After Affects For mild abdominal pain, bloating, or excessive gas: - Rest - Eat lightly - Lie on right side Follow-Up Information Follow-up with DR. JORGE ALBERTO LIN as scheduled Anesthesia Information What You Should Know You have had a procedure that required some medicine to reduce anxiety and discomfort. This treatment is called moderate sedation. After receiving the treatment, you may be sleepy, but you will be able to breathe on your own. The effects of the treatment may last for several hours. Follow these instructions along with Activity/Diet recommendations noted above: * Do NOT do anything where dizziness or clumsiness would be dangerous. * Rest quietly at home today, then you can be up and about tomorrow. * Have a responsible person stay with you the rest of today. * You may have had an I.V. today. If so, you may take the dressing off later today. Recommendations Call your doctor if: * Trouble breathing * Continuous vomiting for more than 24 hours * Temperature above 101 degrees * Severe abdominal pain or bloating * Pain not relieved by pain medicine ordered * There is increased drainage or redness from any incision * A large amount of rectal bleeding greater than 2-3 tablespoons. (If you had a polyp/s removed or have hemorrhoids, a small amount of blood - from the rectum is to be expected.) * You have any unanswered questions or concerns. IN THE EVENT OF A SERIOUS EMERGENCY, GO TO THE NEAREST EMERGENCY ROOM Your discharge instructions were prepared by provider Jacob Mckenna. Patient Instructions Signature Page Mario Friedman Patient (or Guardian) Signature/Date: I have read and understand the instructions given to me by my caregivers. Caregiver/RN/Doctor Signature/Date: The above-named patient and/or guardian has received patient instructions on this date. + Original Patient Signature Page (only) stays with chart. Please make copy for patient.
--- NOTE | 2016-12-29 11:32 | Anesthesiology Progress Note ---
Anesthesia Post Op Note Date & Time Dec 29, 2016 at 11:31 Vital Signs Pain Intensity: 0 Vital Signs Past 12 Hours Date Time Temp Pulse Resp B/P (MAP) Pulse Ox O2 Delivery O2 Flow Rate FiO2 12/29/16 11:25 97 16 106/76 (86) 97 Room Air 12/29/16 11:13 111 16 91/59 (70) 95 Room Air 12/29/16 10:44 36.7 90 18 121/72 (88) 97 Room Air Notes Mental Status: alert / awake / arousable, participated in evaluation Pt Amnestic to Procedure: Yes Nausea / Vomiting: adequately controlled Pain: adequately controlled Airway Patency, RR, SpO2: stable & adequate BP & HR: stable & adequate Hydration State: stable & adequate Anesthetic Complications: no major complications apparent
[2016-12-29 11:35] VITALS: BP 118/82; PULSE 88; O2SAT 99
== END | disposition home or self-care (01) ==
LOC: C.GI 10:28
PROVIDERS: ATTEND Internal Medicine
DX: R10.84 Generalized abdominal pain (principal); Z53.09 Procedure and treatment not carried out because of other contraindication; K52.9 Noninfective gastroenteritis and colitis, unspecified; J45.909 Unspecified asthma, uncomplicated; Z88.0 Allergy status to penicillin; Z88.2 Allergy status to sulfonamides

== ENCOUNTER 2017-01-15 22:06 | Emergency (ER) | payer OTHER ==
[~2017-01-15] VITALS: Ht 185.4 cm; Wt 68.6 kg
[~2017-01-15 22:06] MED LIST changes: -PROPOFOL IV EMULSION 10 MG/ML 20 ML VIAL IV ONE; -SODIUM CHLORIDE 0.9% 500ML 500 ML IV ONE
[2017-01-15 22:10] VITALS: Ht 185.4 cm; Wt 68.6 kg
[2017-01-15 22:51] LABS: BASO % 0.2 %; BASO ABS # 0.01 K/uL (0-0.2); COMPLETE YES; EOS % 5.6 %; HEMATOCRIT 43.9 % (42-52); IG% 0.3 %; LYMPH % 17.7 %; LYMPH ABS # 1.16 K/uL (1.2-3.4); MEAN CELL VOLUME 97.1 fL (80-100); MEAN CORPUSCULAR HEMOGLOBIN 34.1 pg (25-34); MEAN CORPUSCULAR HGB CONC 35.1 g/dl (32-36); MEAN PLATELET VOLUME 10.2 fL (7.4-10.4); MONO % 6.5 %; NEUT % 69.7 %; PLATELET COUNT 171 K/uL (130-400); RED BLOOD COUNT 4.52 M/uL (4.7-6.1); WHITE BLOOD COUNT 6.57 K/uL (4.8-10.8)
[2017-01-15] MEDS ORDERED: ASTN (22:53)
[2017-01-15 22:57] LABS: URINE APPEARANCE CLEAR (CLEAR); URINE BILIRUBIN NEG (NEG); URINE COLOR YELLOW; URINE EPITHELIAL CELL AUTO 0-5 /lpf (0-5); URINE NITRITE NEG (NEG); URINE PH 6.5 (4.5-7.5); URINE SPECIFIC GRAVITY 1.029 (1.000-1.030); UROBILINOGEN NEG (NEG); ZZUR CULT IF INDIC CLEAN CATCH NO
[2017-01-15 22:59] LABS: MANUAL MICROSCOPIC REQUIRED? NO; REVIEW REQ? NO
[2017-01-15] MEDS ORDERED: METOCLOPRAMIDE HCL INJ 5 MG/ML 2 ML VIAL IV STA (23:10)
[2017-01-15] MEDS ORDERED: DiphenhydrAMINE HCL 50 MG/ML VIAL IV STA (23:10)
[2017-01-15] MEDS ORDERED: SODIUM CHLORIDE 0.9% 1000ML 1,000 ML IV STA (23:12)
[2017-01-15 23:23] LABS: BUN/CREATININE RATIO 16.8 (10-20); CALCIUM 9.7 mg/dl (8.5-10.1); CREATININE 0.88 mg/dl (0.60-1.40); POTASSIUM 3.8 mmol/L (3.5-5.1)
[2017-01-15 23:26] LABS: ALB/GLOB RATIO 1.3 (0.9-2)
--- NOTE | 2017-01-16 00:33 | EMERGENCY ROOM VISIT NOTE ---
History Report prepared by Wendie: Cindy Moore Under the Supervision of: Dr. Jeanna Ugarte D.O. First contact with patient: 22:55 Chief Complaint: ABDOMINAL PAIN Stated Complaint: ABDOMINAL PAIN, VOMITING Nursing Triage Summary: pt c/o abd pain with vomiting for 3 days. pt has been here multiple times History of Present Illness The patient is a 31 year old male who presents to the Emergency Room with complaints of worsening abdominal pain starting 3 days ago. The patient states that he has been in and out of the hospital for this pain. He reports that he has had a colonoscopy and EGD done. He notes that it does not appear to have anything abnormal. Has had prior CT scan also that was unremarkable as reported to him. He states that he has seen a GI doctor as well. He reports that they cannot figure out what it is from. He describes the pain as sharp and that it moves around his abdomen. The patient currently rates his pain as a 3/ 10 in severity. He states that he has started vomiting and has vomited over 50 times the last 3 days. He states that he cannot even keep water down now and hasn't been able to keep food down. He reports that all he vomits is bile. He states that he is concerned about being dehydrated. He states that he regularly takes antacids and antinausea medication. The patient notes that he has been becoming so weak he can't walk and sometimes has to miss work because it is so bad. He notes that his stools are always loose. The patient denies hematochezia , fevers, and chills. He notes he has had a cholecystectomy. Patient states he has had similar symptoms over the course of the last 18 months to 2 years. They 've been unable to determine if it is related to diet. He states GI has done additional testing for such entities as celiac disease and he was told it was negative. She denies any recent stress or anxiety, denies any dietary change, recent travel, or change in the other medications. Patient states he is not having as much abdominal pain right now as he is the concern for his persistent nausea and vomiting. States over the last 4-6 weeks he has had more recurrent episodes of the same. Source of History: patient Onset: 3 days ago Position: abdomen Symptom Intensity: 3/10 Quality: sharp Timing: worsening Associated Symptoms: + nausea, + vomiting, + diarrhea, + weakness, No fevers , No chills, No hematochezia Review of Systems Pt denies headache, change in vision, fevers, chest pain, shortness of breath, nausea, vomiting, diarrhea, pain with urination, and melena. Past Medical & Surgical Medical Problems: (1) No Known Active Medical Problems Family History Patient reports no known family medical history. Social History Smoking Status: Never Smoker Marital Status: in relationship Housing Status: lives with significant other Occupation Status: employed Current/Historical Medications Scheduled Albuterol (Ventolin Hfa), 2 PUFFS INH BID Azelastine Hcl (Astelin Nasal [place]), 1-2 SPRAYS NA BID Fluticasone Furoate-Vilanterol (Breo Ellipta 200-25 Mcg/INH), 1 PUFF INH BID Fluticasone Propionate (Nasal) (Flonase Allergy Relief), 2 SPRAYS SHLOMO BID Lansoprazole (Prevacid), 30 MG PO QAM Loratadine (Claritin), 10 MG PO QAM Ranitidine (Zantac), 150 MG PO QAM Venlafaxine Hcl (Effexor), 37.5 MG PO QAM Scheduled PRN Rizatriptan Benzoate (Maxalt), 10 MG PO UD PRN for Migraine Allergies Coded Allergies: Aspirin (Verified Allergy, Severe, HIVES, WHEEZING, SOB, 01/15/17) NSAIDs (Verified Allergy, Severe, HIVES, WHEEZING, SOB, 01/15/17) Penicillins (Verified Allergy, Severe, HIVES, WHEEZING, SOB, 01/15/17) Sulfamethoxazole w/Trimethoprim (Verified Allergy, Severe, HIVES, WHEEZING , SOB, 01/15/17) Physical Exam Vital Signs Date Time Temp Pulse Resp B/P (MAP) Pulse Ox O2 Delivery O2 Flow Rate FiO2 01/16/17 00:52 36.6 68 18 140/98 100 01/15/17 22:10 36.6 70 18 143/101 100 Room Air Physical Exam GENERAL: alert, well appearing, well nourished, no distress, non-toxic EYE EXAM: normal conjunctiva, PERRL and EOM's grossly intact OROPHARYNX: no exudate, no erythema, lips, buccal mucosa, and tongue normal and mucous membranes are moist NECK: supple, no nuchal rigidity, no adenopathy, non-tender LUNGS: Clear to auscultation. Normal chest wall mechanics HEART: no murmurs, S1 normal and S2 normal ABDOMEN: abdomen soft, generalized abdominal discomfort, no focal rebound guarding, normo-active bowel sounds, no masses, no rebound or guarding. BACK: Back is symmetrical on inspection and there is no deformity, no midline tenderness, no CVA tenderness. SKIN: no rashes and no bruising UPPER EXTREMITIES: upper extremities are grossly normal. LOWER EXTREMITIES: No pitting edema. NEURO EXAM: Normal sensorium, cranial nerves II-XII grossly intact, normal speech, no gross weakness of arms, no gross weakness of legs. No drift. Finger to nose intact. Gross sensation intact. Medical Decision & Procedures Laboratory Results 01/15/17 22:35 Red Blood Count 4.52, Mean Corpuscular Volume 97.1, Mean Corpuscular Hemoglobin 34.1, Mean Corpuscular Hemoglobin Concent 35.1, Mean Platelet Volume 10.2, Neutrophils (%) (Auto) 69.7, Lymphocytes (%) (Auto) 17.7, Monocytes (%) (Auto) 6.5, Eosinophils (%) (Auto) 5.6, Basophils (%) (Auto) 0.2, Neutrophils # (Auto) 4.58, Lymphocytes # (Auto) 1.16, Monocytes # (Auto) 0.43, Eosinophils # (Auto) 0.37, Basophils # (Auto) 0.01 01/15/17 22:35 Test 01/15/17 22:35 01/15/17 22:40 White Blood Count 6.57 K/uL (4.8-10.8) Red Blood Count 4.52 M/uL (4.7-6.1) Hemoglobin 15.4 g/dL (14.0-18.0) Hematocrit 43.9 % (42-52) Mean Corpuscular Volume 97.1 fL (80-100) Mean Corpuscular Hemoglobin 34.1 pg (25-34) Mean Corpuscular Hemoglobin Concent 35.1 g/dl (32-36) Platelet Count 171 K/uL (130-400) Mean Platelet Volume 10.2 fL (7.4-10.4) Neutrophils (%) (Auto) 69.7 % Lymphocytes (%) (Auto) 17.7 % Monocytes (%) (Auto) 6.5 % Eosinophils (%) (Auto) 5.6 % Basophils (%) (Auto) 0.2 % Neutrophils # (Auto) 4.58 K/uL (1.4-6.5) Lymphocytes # (Auto) 1.16 K/uL (1.2-3.4) Monocytes # (Auto) 0.43 K/uL (0.11-0.59) Eosinophils # (Auto) 0.37 K/uL (0-0.5) Basophils # (Auto) 0.01 K/uL (0-0.2) RDW Standard Deviation 42.4 fL (36.4-46.3) RDW Coefficient of Variation 11.9 % (11.5-14.5) Immature Granulocyte % (Auto) 0.3 % Immature Granulocyte # (Auto) 0.02 K/uL (0.00-0.02) Anion Gap 7.0 mmol/L (3-11) Est Creatinine Clear Calc Drug Dose 119.1 ml/min Estimated GFR () 133.6 Estimated GFR (Non- 115.3 BUN/Creatinine Ratio 16.8 (10-20) Calcium Level 9.7 mg/dl (8.5-10.1) Total Bilirubin 0.5 mg/dl (0.2-1) Aspartate Amino Transf (AST/SGOT) 21 U/L (15-37) Alanine Aminotransferase (ALT/SGPT) 33 U/L (12-78) Alkaline Phosphatase 62 U/L (45-117) Total Protein 8.0 gm/dl (6.4-8.2) Albumin 4.5 gm/dl (3.4-5.0) Globulin 3.5 gm/dl (2.5-4.0) Albumin/Globulin Ratio 1.3 (0.9-2) Lipase 79 U/L (73-393) Urine Color YELLOW Urine Appearance CLEAR (CLEAR) Urine pH 6.5 (4.5-7.5) Urine Specific Success 1.029 (1.000-1.030) Urine Protein TRACE (NEG) Urine Glucose (UA) NEG (NEG) Urine Ketones TRACE (NEG) Urine Occult Blood NEG (NEG) Urine Nitrite NEG (NEG) Urine Bilirubin NEG (NEG) Urine Urobilinogen NEG (NEG) Urine Leukocyte Esterase NEG (NEG) Urine WBC (Auto) 1-5 /hpf (0-5) Urine RBC (Auto) 0-4 /hpf (0-4) Urine Hyaline Casts (Auto) 1-5 /lpf (0-5) Urine Epithelial Cells (Auto) 0-5 /lpf (0-5) Urine Bacteria (Auto) NEG (NEG) Laboratory results per my review. Medications Administered Medications (Trade) Dose Ordered Sig/Manuela Route Start Time Stop Time Status Last Admin Dose Admin Metoclopramide HCl (Reglan Inj) 10 mg NOW STAT IV 01/15/17 23:10 01/15/17 23:12 DC 01/15/17 23:18 10 MG Diphenhydramine HCl (Benadryl Inj) 25 mg NOW STAT IV 01/15/17 23:10 01/15/17 23:12 DC 01/15/17 23:18 25 MG Sodium Chloride 1,000 ml @ 999 mls/hr Q1H1M STAT IV 01/15/17 23:12 01/16/17 00:12 DC 01/15/17 23:18 999 MLS/HR ED Course 2258: The patient was evaluated in room A3. A complete history and physical exam was performed. 2310: Ordered Benadryl Inj 25 mg IV, Reglan Inj 10 mg IV. 2312: Ordered NSS 1000 ml @ 999 mls/hr IV. 0027: Upon reevaluation, the patient is kind of feeling better and wants to go home. I discussed the findings and the treatment plan with the patient. He verbalizes agreement and understanding. The patient was discharged home. Medical Decision Etiologies such as appendicitis, diverticulitis, PUD, biliary pathology, UTI, pancreatitis, obstruction, mesenteric ischemia, aortic pathology, infections, inflammatory bowel disease, renal colic, as well as others were entertained. Patient with chronic intermittent abdominal pain and nausea vomiting. Patient is previously been evaluated by GI. 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 Encouraged patient to continue taking antiemetics and acid reducing medications at home. Patient's labs here reassuring. Patient given a liter fluid as well as nausea medication. Patient reported no improvement of symptoms but asked to be discharged. Discussed with him symptoms to watch and return for, he verbalized understanding was agreeable with plan. Vital signs stable throughout. Patient with no rebound or guarding , soft and nontender abdomen repeat exam. I have a low suspicion for bowel obstruction, colitis, perforation, mesenteric ischemia, diverticulitis, appendicitis, no symptoms to suggest or vascular pathology. Patient symptoms similar to multiple prior episodes. Did not feel patient warranted repeat CT at this time due to risks of additional radiation. I discussed this with patient and he was agreeable. [place] Drug Monitoring Program Search Results: no issues identified Medication Reconcilliation Current Medication List: was personally reviewed by me Blood Pressure Screening Patient's blood pressure: Elevated blood pressure Blood pressure disposition: Elevated BP felt to be situational Impression Primary Impression: Abdominal pain Additional Impression: Nausea & vomiting Scribe Attestation The scribe's documentation has been prepared under my direction and personally reviewed by me in its entirety. I confirm that the note above accurately reflects all work, treatment, procedures, and medical decision making performed by me. Departure Information Dispostion Home / Self-Care Referrals Alexandra Fletcher M.D. (PCP) Forms HOME CARE DOCUMENTATION FORM, IMPORTANT VISIT INFORMATION Patient Instructions My [facility] Additional Instructions Please discuss your persistent symptoms with your shelter supervisor. You may consider talking with your family doctor or GI specialist regarding a local dietitian to perhaps help isolate if there is something in your diet the could be contributing to your recurrent severe symptoms. If you develop worsening pain, intractable vomiting, fevers or chills, noticed blood in your vomit, have black or bloody stools, or you have any other new concerns, please return the emergency room. Problem Qualifiers Primary Impression: Abdominal pain Abdominal location: generalized Qualified Codes: R10.84 - Generalized abdominal pain Additional Impression: Nausea & vomiting Vomiting type: unspecified Vomiting Intractability: non-intractable Qualified Codes: R11.2 - Nausea with vomiting, unspecified
[2017-01-16 00:52] VITALS: BP 140/98; PULSE 68; TEMP 36.6; O2SAT 100
== END 2017-01-16 00:53 | disposition home or self-care (01) ==
LOC: C.EDB 22:08 → C.EDA 01-16 00:53
DX: R10.84 Generalized abdominal pain (principal); R11.2 Nausea with vomiting, unspecified

== ENCOUNTER → 2017-02-04 | Day surgery (SDC) | payer OTHER ==
[2017-02-02 14:03] VITALS: BMI 19.0
[~2017-02-04] VITALS: Ht 185.4 cm; Wt 65.5 kg
[~2017-02-04] MED LIST changes: +BECL1AER5 NAE; -CLR10 PO; +LIDOCAINE HCL 2% 2 ML VIAL (20MG/ML) ONE; +OXYC-57 PO; +PROPOFOL IV EMULSION 10 MG/ML 20 ML VIAL IV ONE; +SODIUM CHLORIDE 0.9% 500ML 500 ML IV ONE
[2017-02-04 13:36] VITALS: Ht 185.4 cm; Wt 65.5 kg
--- NOTE | 2017-02-04 14:54 | Endo History and Physical ---
History & Physical Date of Service: Feb 04, 2017. Chief Complaint: diarrhea Referring Physician: dr. garcia History of Present Illness 31 yo CM who presents for colonoscopy secondary to diarrhea. Past Surgical History Hx Cardiac Surgery: No Hx Internal Defibrillator: No Hx Pacemaker: No Hx Abdominal Surgery: Yes (LAP DELILAH) Hx of Implantable Prosthesis: No Hx Post-Op Nausea and Vomiting: No Hx Cancer Surgery: No Hx Thoracic Surgery: No Hx Orthopedic: No Hx Urinary Tract Surgery: No Family History IBD Social History Smoking Status: Former Smoker Hx Substance Use: No Hx Alcohol Use: Yes (OCCASIONAL) Allergies Coded Allergies: Aspirin (Verified Allergy, Severe, HIVES, WHEEZING, SOB, 02/04/17) NSAIDs (Verified Allergy, Severe, HIVES, WHEEZING, SOB, 02/04/17) Penicillins (Verified Allergy, Severe, HIVES, WHEEZING, SOB, 02/04/17) Sulfamethoxazole w/Trimethoprim (Verified Allergy, Severe, HIVES, WHEEZING , SOB, 02/04/17) Current Medications Reported Home Medications Medications Dose Route/Sig Max Daily Dose Days Date Category Dose Instructions Percocet 5MG/325MG (Oxycodone/Acetaminophen) Tab 1-2 Tablets PO Q4H PRN 02/02/17 Reported PAIN Qnasl (Beclomethasone Dipropionate (N) 80 Mcg/Act Aer 2 [place] SHLOM[place] DAILY 01/23/17 Reported Astelin Nasal [place] (Azelastine Hcl) 200 Sprays/30 Ml [place] 1-2 Sprays NA BID 01/15/17 Reported Zantac (Ranitidine HCl) 150 Mg Tab 150 Mg PO QAM 12/07/16 Reported Prevacid (Lansoprazole) 30 Mg Capcr 30 Mg PO QAM 12/07/16 Reported Effexor (Venlafaxine Hcl) 37.5 Mg Tab 37.5 Mg PO QAM 09/07/16 Reported Maxalt (Rizatriptan Benzoate) 10 Mg Tab 10 Mg PO UD PRN 01/31/16 Reported May take up to 3 times per day if needed Ventolin Hfa (Albuterol) 60 Puffs/5400 Mcg Aers 2 Puffs INH BID 01/22/16 Reported 90 MCG 200 METERED INH LISTED ON INHALER Flonase Allergy Relief (Fluticasone Propionate (Nasal)) 50 Mcg/Act Spr 2 Sprays [place] BID 09/12/15 Reported Breo Ellipta 200-25 Mcg/INH (Fluticasone Furoate-Vilanterol) 1 Inh Inh 1 Puff INH BID 09/12/15 Reported Vital Signs Weight (Kilograms): 65.45 Height (Feet): 6 Height (Inches): 1 Date Time Temp Pulse Resp B/P (MAP) Pulse Ox O2 Delivery O2 Flow Rate FiO2 02/04/17 13:48 36.8 80 18 119/79 (92) 98 Room Air Physical Exam General Appearance: WD/WN, no apparent distress Respiratory/Chest: Auscultation: breath sounds normal Cardiovascular: Heart Auscultation: RRR Abdomen: Bowel Sounds: normal Inspection & Palpation: soft, non-distended, no tenderness, guarding & rebound Assessment and Plan Assessment: 31 yo CM who presents for colonoscopy secondary to diarrhea. Plan: Proceed with colonoscopy.
--- NOTE | 2017-02-04 15:29 | GI REPORT ---
Procedure Date: 02/04/2017 2:28 PM Procedure: Colonoscopy Indications: Chronic diarrhea Medicines: Monitored Anesthesia Care Complications: No immediate complications. Estimated Blood Loss: Estimated blood loss: none. Procedure: Pre-Anesthesia Assessment: - Prior to the procedure, a History and Physical was performed, and patient medications and allergies were reviewed. The patient's tolerance of previous anesthesia was also reviewed. The risks and benefits of the procedure and the sedation options and risks were discussed with the patient. All questions were answered, and informed consent was obtained. Prior Anticoagulants: The patient has taken no previous anticoagulant or antiplatelet agents. ASA Grade Assessment: II - A patient with mild systemic disease. After reviewing the risks and benefits, the patient was deemed in satisfactory condition to undergo the procedure. After I obtained informed consent, the scope was passed under direct vision. Throughout the procedure, the patient's blood pressure, pulse, and oxygen saturations were monitored continuously. The Scope was introduced through the anus and advanced to the terminal ileum. The colonoscopy was performed without difficulty. The patient tolerated the procedure well. The quality of the bowel preparation was good. The terminal ileum, the appendiceal orifice and the rectum were photographed. Findings: The perianal and digital rectal examinations were normal. The colon (entire examined portion) appeared normal. Fluid aspiration for cytology was performed. Several random biopsies were obtained with cold forceps for histology in the entire colon. Impression: - The entire examined colon is normal. Fluid aspiration performed. - Several random biopsies were obtained in the entire colon. Recommendation: - Resume previous diet. - Continue present medications. - Consider Questran 4 g in 8 oz glass of water daily if biopsies and stool are unremarkable. - Repeat colonoscopy for surveillance based on pathology results. - Return to primary care physician as previously scheduled. Jacob Mckenna DO 02/04/2017 3:29:17 PM This report has been signed electronically. Note Initiated On: 02/04/2017 2:28 PM I attest to the content of the Intraoperative Record and orders documented therein, exceptions below
--- NOTE | 2017-02-04 15:38 | Anesthesiology Progress Note ---
Anesthesia Post Op Note Date & Time Feb 04, 2017 at 15:38 Vital Signs Pain Intensity: 0 Vital Signs Past 12 Hours Date Time Temp Pulse Resp B/P (MAP) Pulse Ox O2 Delivery O2 Flow Rate FiO2 02/04/17 15:35 82 18 108/71 (83) 95 Room Air 02/04/17 15:20 90 18 108/63 (78) 96 Room Air 02/04/17 13:48 36.8 80 18 119/79 (92) 98 Room Air Notes Mental Status: alert / awake / arousable, participated in evaluation Pt Amnestic to Procedure: Yes Nausea / Vomiting: adequately controlled Pain: adequately controlled Airway Patency, RR, SpO2: stable & adequate BP & HR: stable & adequate Hydration State: stable & adequate Anesthetic Complications: no major complications apparent
[2017-02-04 15:50] VITALS: BP 108/72; PULSE 79; O2SAT 95
--- NOTE | 2017-02-04 16:13 | Discharge Instructions ---
Endoscopy Patient Instructions Date / Procedure(s) Performed Feb 04, 2017. Colonoscopy Allergy Information Coded Allergies: Aspirin (Verified Allergy, Severe, HIVES, WHEEZING, SOB, 02/04/17) NSAIDs (Verified Allergy, Severe, HIVES, WHEEZING, SOB, 02/04/17) Penicillins (Verified Allergy, Severe, HIVES, WHEEZING, SOB, 02/04/17) Sulfamethoxazole w/Trimethoprim (Verified Allergy, Severe, HIVES, WHEEZING , SOB, 02/04/17) Discharge Date / Findings Feb 04, 2017. Normal colonoscopy Random colon biopsies Stool aspirate collected Medication Instructions OK to resume all medications today as prescribed Reported Home Medications Medications Dose Route/Sig Max Daily Dose Days Date Category Dose Instructions Percocet 5MG/325MG (Oxycodone/Acetaminophen) Tab 1-2 Tablets PO Q4H PRN 02/02/17 Reported PAIN Qnasl (Beclomethasone Dipropionate (N) 80 Mcg/Act Aer 2 [place] SHLOMO DAILY 01/23/17 Reported Astelin Nasal [place] (Azelastine Hcl) 200 Sprays/30 Ml [place] 1-2 Sprays NA BID 01/15/17 Reported Zantac (Ranitidine HCl) 150 Mg Tab 150 Mg PO QAM 12/07/16 Reported Prevacid (Lansoprazole) 30 Mg Capcr 30 Mg PO QAM 12/07/16 Reported Effexor (Venlafaxine Hcl) 37.5 Mg Tab 37.5 Mg PO QAM 09/07/16 Reported Maxalt (Rizatriptan Benzoate) 10 Mg Tab 10 Mg PO UD PRN 01/31/16 Reported May take up to 3 times per day if needed Ventolin Hfa (Albuterol) 60 Puffs/5400 Mcg Aers 2 Puffs INH BID 01/22/16 Reported 90 MCG 200 METERED INH LISTED ON INHALER Flonase Allergy Relief (Fluticasone Propionate (Nasal)) 50 Mcg/Act Spr 2 Sprays [place] BID 09/12/15 Reported Breo Ellipta 200-25 Mcg/INH (Fluticasone Furoate-Vilanterol) 1 Inh Inh 1 Puff INH BID 09/12/15 Reported Provider Instructions Activity Restrictions - No exercising or heavy lifting for 24 hours. - Do not drink alcohol the day of the procedure. - Do not drive a car or operate machinery until the day after the procedure. - Do not make any important decisions or sign important papers in 24 hours after the procedure. Following Day: - Return to full activity which may include returning to work/school. Diet Start your diet with liquids and light foods (jello, soup, juice, toast). Then eat your usual diet if not nauseated. Treatment For Common After Affects For mild abdominal pain, bloating, or excessive gas: - Rest - Eat lightly - Lie on right side Follow-Up Information Follow-up with dr. garcia as scheduled Anesthesia Information What You Should Know You have had a procedure that required some medicine to reduce anxiety and discomfort. This treatment is called moderate sedation. After receiving the treatment, you may be sleepy, but you will be able to breathe on your own. The effects of the treatment may last for several hours. Follow these instructions along with Activity/Diet recommendations noted above: * Do NOT do anything where dizziness or clumsiness would be dangerous. * Rest quietly at home today, then you can be up and about tomorrow. * Have a responsible person stay with you the rest of today. * You may have had an I.V. today. If so, you may take the dressing off later today. Recommendations Call your doctor if: * Trouble breathing * Continuous vomiting for more than 24 hours * Temperature above 101 degrees * Severe abdominal pain or bloating * Pain not relieved by pain medicine ordered * There is increased drainage or redness from any incision * A large amount of rectal bleeding greater than 2-3 tablespoons. (If you had a polyp/s removed or have hemorrhoids, a small amount of blood - from the rectum is to be expected.) * You have any unanswered questions or concerns. IN THE EVENT OF A SERIOUS EMERGENCY, GO TO THE NEAREST EMERGENCY ROOM Your discharge instructions were prepared by provider Jacob Mckenna. Patient Instructions Signature Page Mario Friedman Patient (or Guardian) Signature/Date: I have read and understand the instructions given to me by my caregivers. Caregiver/RN/Doctor Signature/Date: The above-named patient and/or guardian has received patient instructions on this date. + Original Patient Signature Page (only) stays with chart. Please make copy for patient.
== END | disposition home or self-care (01) ==
LOC: C.GI 13:21
PROVIDERS: ATTEND Internal Medicine
DX: K52.9 Noninfective gastroenteritis and colitis, unspecified (principal); J45.909 Unspecified asthma, uncomplicated; K21.9 Gastro-esophageal reflux disease without esophagitis; Z88.0 Allergy status to penicillin; Z88.2 Allergy status to sulfonamides; Z90.49 Acquired absence of other specified parts of digestive tract; Z79.899 Other long term (current) drug therapy

== ENCOUNTER 2017-05-02 17:17 | Emergency (ER) | payer OTHER ==
[~2017-05-02] VITALS: Ht 182.9 cm; Wt 72.4 kg
[~2017-05-02 17:17] MED LIST changes: -LIDOCAINE HCL 2% 2 ML VIAL (20MG/ML) ONE; -PROPOFOL IV EMULSION 10 MG/ML 20 ML VIAL IV ONE; -SODIUM CHLORIDE 0.9% 500ML 500 ML IV ONE
[2017-05-02 17:22] VITALS: TEMP 36.7; Ht 182.9 cm; Wt 72.4 kg
[2017-05-02] MEDS ORDERED: SODIUM CHLORIDE 0.9% 500ML 500 ML IV STA (18:01)
[2017-05-02] MEDS ORDERED: DiphenhydrAMINE HCL 50 MG/ML VIAL IV STA (18:01)
[2017-05-02] MEDS ORDERED: RANITIDINE HCL 50 MG/100 ML D5W IV STA (18:01)
[2017-05-02 18:15] VITALS: O2SAT 97
[2017-05-02] MEDS ORDERED: DEXAMETHASONE **PF** INJ 10 MG/ML VIAL IV ONE (18:15)
[2017-05-02] MEDS ORDERED: PRED20TA PO (19:31)
--- NOTE | 2017-05-02 19:36 | EMERGENCY ROOM VISIT NOTE ---
History First contact with patient: 17:32 Chief Complaint: RASH Stated Complaint: HIVES, SWELLING History of Present Illness The patient is a 31 year old male who presents to the Emergency Room with complaints of any acute rash all over his body, but most prominent on his legs. The patient reports that they itch and burn so much that he cannot sit still. He had difficulty sleeping last night because of the itch. The patient has taken Benadryl 50 mg every 12 hours without relief. He has also tried calamine lotion and hydrocortisone cream. The patient reports that he was recently in the [place] from [place]17. He did have sunburns on his legs. He was in the water. He does report eating any unusual foods. He has had no fevers or chills. The patient reports that he has had a mild nonproductive cough and loose stools. His girlfriend went with him and has had no skin problems or other adverse reactions. The patient denies any pain, but rates his pruritic discomfort a 7 out of 10. Review of Systems 10 system review was performed and was negative except for pertinent positives and negatives as indicated in history of present illness Past Medical/Surgical History Medical Problems: (1) Kidney stone (2) No Known Active Medical Problems (3) Stomach ulcer Surgical Problems: (1) S/P cholecystectomy Family History FH: cancer FH: diabetes mellitus FH: gallbladder disease FH: heart disease FH: hypertension FH: kidney disease Irritable bowel syndrome Social History Smoking Status: Former Smoker Alcohol Use: occasionally Marital Status: in relationship Housing Status: lives with significant other Occupation Status: employed Current/Historical Medications Scheduled Azelastine Hcl (Astelin Nasal [place]), 1-2 SPRAYS NA BID Beclomethasone Dipropionate (N (Qnasl), 2 SPRY [place] DAILY Fluticasone Furoate-Vilanterol (Breo Ellipta 200-25 Mcg/INH), 1 PUFF INH BID Fluticasone Propionate (Nasal) (Flonase Allergy Relief), 2 SPRAYS SHLOMO BID Lansoprazole (Prevacid), 30 MG PO QAM Prednisone (Prednisone), 0 PO DAILY Ranitidine (Zantac), 150 MG PO QAM Venlafaxine Hcl (Effexor), 37.5 MG PO QAM Scheduled PRN Albuterol (Ventolin Hfa), 2 PUFFS INH BID PRN for Shortness of Breath Rizatriptan Benzoate (Maxalt), 10 MG PO UD PRN for Migraine Physical Exam Vital Signs Date Time Temp Pulse Resp B/P (MAP) Pulse Ox O2 Delivery O2 Flow Rate FiO2 05/02/17 18:15 97 Room Air 05/02/17 17:22 36.7 112 20 151/90 95 Room Air Physical Exam CONSTITUTIONAL: Healthy and well nourished. Alert and oriented X 3 with positive affect. Patient appears in moderate discomfort from pruritus, and is scratching his legs. HEENT: Normocephalic, atraumatic. Pupils equal, round and reactive. Ears and nares are clear. No scleral icterus or conjunctival injection/pallor. OROPHARYNX: No tonsillar hypertrophy/exudates or posterior pharyngeal erythema. NECK: Full active range of motion without discomfort. LYMPHATICS: No adenopathy noted. RESPIRATORY: Clear to auscultation bilaterally with no wheezing, crackles, rhonchi or stridor. CARDIOVASCULAR: Regular rate and rhythm with no murmurs, rubs or gallops. GASTROINTESTINAL: Bowel sounds present in all quadrants. Soft and nontender to palpation. MUSCULOSKELETAL: Full range of motion of all joints without discomfort. No increased warmth to palpation or bogginess of the major joints. INTEGUMENTARY: Examination shows a widespread hurt occurred or rash with erythematous raised lesions with sharply demarcated borders. A few excoriations are noted without any evidence for secondary infection. The lesions do osmar with pressure, and are most concentrated over the lower extremities, bilateral flanks, back and arms. The palms and soles are spared. No underlying petechiae or ecchymosis noted. NEUROLOGIC: No focal neurologic deficits noted. Medical Decision & Procedures Medications Administered Medications (Trade) Dose Ordered Sig/Manuela Route Start Time Stop Time Status Last Admin Dose Admin Sodium Chloride 500 ml @ 999 mls/hr Q31M STAT IV 05/02/17 18:01 05/02/17 18:31 DC 05/02/17 18:10 999 MLS/HR Diphenhydramine HCl (Benadryl Inj) 50 mg NOW STAT IV 05/02/17 18:01 05/02/17 18:04 DC 05/02/17 18:10 50 MG Ranitidine HCl (zANTac IV) 50 mg NOW STAT IV 05/02/17 18:01 05/02/17 18:04 DC 05/02/17 18:22 50 MG Dexamethasone Sodium Phosphate (Dexamethasone Inj Pf) 10 mg NOW ONCE IV 05/02/17 18:15 05/02/17 18:16 DC 05/02/17 18:10 10 MG ED Course Patient history and physical exam were performed. Nurse's notes were reviewed. Vital signs were reviewed, showing a mildly elevated blood pressure 151/90. The patient is afebrile. The patient appears in moderate discomfort from pruritus. The skin lesions are consistent with hives. IV access was established, and the patient was treated with IV Benadryl, Decadron and Zantac. He was also administered a normal saline 500 mL bolus. Recheck at an hour shows significant reduction of erythema and pruritus. The patient was appreciative of the relief. The patient was provided a prescription for a prednisone taper. He was encouraged to continue with Benadryl and Zantac, along with cool compresses as needed for relief. I did encourage him to follow- up with his PCP within the next 2-3 days. Return to the emergency department for worsening rash, developing fever or other concerns. The patient was happy with plan of care, and denied any significant discomfort at the time of discharge. Medical Decision History and clinical exam findings, as well as response to intravenous medications is high suggestive of hives. Exact etiology is uncertain. Viral etiology or contact reaction was considered. Because the rash did significantLY improve with IV treatment, and because the patient does not have fever, I do not suspect cellulitis. The rash also blanches with pressure. He has no evidence of desquamation to be concerned for SJS or TEN. Medication Reconcilliation Current Medication List: was personally reviewed by me Blood Pressure Screening Patient's blood pressure: Normal blood pressure Impression Primary Impression: Hives Departure Information Prescriptions Prednisone (Prednisone) 20 Mg Tab 0 PO DAILY, #18 TAB 3 DAILY FOR 3 DAYS, THEN 2 DAILY FOR 3 DAYS, THEN 1 DAILY FOR 3 DAYS. Prov: Nakul Lee PA 05/02/17 Referrals Alexandra Fletcher M.D. (PCP) Patient Instructions My [facility]
[2017-05-02 19:44] VITALS: BP 128/75; PULSE 82; O2SAT 97
== END 2017-05-02 19:47 | disposition home or self-care (01) ==
LOC: C.EDB 17:18 → C.EDD 19:47
DX: L50.9 Urticaria, unspecified (principal); Z87.442 Personal history of urinary calculi; Z80.9 Family history of malignant neoplasm, unspecified; Z83.3 Family history of diabetes mellitus; Z83.79 Family history of other diseases of the digestive system; Z82.49 Family history of ischemic heart disease and other diseases of the circulatory system; Z84.1 Family history of disorders of kidney and ureter; Z87.891 Personal history of nicotine dependence; Z79.899 Other long term (current) drug therapy

== ENCOUNTER 2017-06-14 23:31 | Emergency (ER) | payer OTHER ==
[~2017-06-14] VITALS: Ht 185.4 cm; Wt 74.4 kg
[~2017-06-14 23:31] MED LIST changes: -OXYC-57 PO; +PRED20TA PO; +RANI150T85 PO; -ZNTT/150 PO
[2017-06-14 23:38] VITALS: TEMP 36.4; Ht 185.4 cm; Wt 74.4 kg
[2017-06-14 23:47] VITALS: O2SAT 98
[2017-06-15 00:04] LABS: BASO % 0.2 %; BASO ABS # 0.01 K/uL (0-0.2); EOS % 7.2 %; EOS ABS # 0.34 K/uL (0-0.5); HEMOGLOBIN 13.9 g/dL (14.0-18.0); IG# 0.01 K/uL (0.00-0.02); LYMPH % 23.9 %; LYMPH ABS # 1.13 K/uL (1.2-3.4); MEAN CORPUSCULAR HEMOGLOBIN 35.6 pg (25-34); MEAN CORPUSCULAR HGB CONC 35.6 g/dl (32-36); MEAN PLATELET VOLUME 9.8 fL (7.4-10.4); MONO % 10.6 %; NEUT % 57.9 %; NEUT ABS # 2.74 K/uL (1.4-6.5); PLATELET COUNT 163 K/uL (130-400); RED CELL DISTRIBUTION WIDTH CV 12.1 % (11.5-14.5); RED CELL DISTRIBUTION WIDTH SD 43.6 fL (36.4-46.3); WHITE BLOOD COUNT 4.73 K/uL (4.8-10.8)
[2017-06-15 00:28] LABS: ALBUMIN 4.2 gm/dl (3.4-5.0); CALCIUM 8.9 mg/dl (8.5-10.1); CREATININE 0.91 mg/dl (0.60-1.40); POTASSIUM 3.2 mmol/L (3.5-5.1)
[2017-06-15 00:33] LABS: CKMB 0.7 ng/ml (0.5-3.6)
--- NOTE | 2017-06-15 01:54 | EMERGENCY ROOM VISIT NOTE ---
History First contact with patient: 23:36 Chief Complaint: CHEST PAIN Stated Complaint: CHEST PAIN Nursing Triage Summary: Patient ambulatory to triage with an upright and steady gait, states "I woke up yesterday and my left chest felt sore. The more that I moved, the worse it got. The pain is like a stabbing pain when I take a deep breath or bend over or move my left arm. I can't take aspirin or NSAIDs so I tried some Tylenol for the pain with no relief. I worked all day today and I thought the pain was going to get better. Around 1400, the pain started worsening again and continues to do so. The pain was going up my neck earlier. I have been dizzy and short of breath." Patient sounds congested and reports that he has chronic sinus issues for which he has surgery about every 6 months. Patient was here about 1 month ago for BLE swelling and rashes. Patient was at the [facility] in March and developed the swelling and rashes while there. These are improved per patient. History of Present Illness The patient is a 31 year old male who presents to the Emergency Room with complaints of left-sided chest pain. The patient reports that he woke up yesterday morning with pain in the left side of his chest. He states the pain is worse with deep breath, sneezing, movement of the left arm, or bending/ moving his torso. 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 He rates the pain a 6/10. The patient denies radiation of the pain, nausea/vomiting, lightheadedness/ syncope or palpitations. He has no difficulty breathing. He does report a cough due to chronic sinus issues, but denies any recent upper respiratory infection symptoms or fevers. He has taken Tylenol without relief of his pain. He denies any personal history of cardiac disease or blood clots. He is not a smoker. No recent travel. He does report a family history of cardiac disease in his mother, who had her first IN in her mid to late 40s. Review of Systems A complete 10 point review of systems was reviewed with the patient with pertinent positives and negatives as per history of present illness. All else were negative. Past Medical/Surgical History Medical Problems: (1) Asthma (2) Kidney stone (3) Stomach ulcer Surgical Problems: (1) History of sinus surgery (2) S/P cholecystectomy Family History FH: cancer FH: diabetes mellitus FH: gallbladder disease FH: heart disease FH: hypertension FH: kidney disease Irritable bowel syndrome Social History Smoking Status: Former Smoker Alcohol Use: occasionally Marital Status: in relationship Housing Status: lives with significant other Occupation Status: employed Current/Historical Medications Scheduled Azelastine Hcl (Astelin Nasal [place]), 1-2 SPRAYS NA BID Beclomethasone Dipropionate (N (Qnasl), 2 SPRY SHLOMO DAILY Fluticasone Furoate-Vilanterol (Breo Ellipta 200-25 Mcg/INH), 1 PUFF INH BID Fluticasone Propionate (Nasal) (Flonase Allergy Relief), 2 SPRAYS SHLOMO BID Lansoprazole (Prevacid), 30 MG PO QAM Ranitidine (Zantac), 150 MG PO QAM Venlafaxine Hcl (Effexor), 37.5 MG PO QAM Scheduled PRN Albuterol (Ventolin Hfa), 2 PUFFS INH BID PRN for Shortness of Breath Rizatriptan Benzoate (Maxalt), 10 MG PO UD PRN for Migraine Physical Exam Vital Signs Date Time Temp Pulse Resp B/P (MAP) Pulse Ox O2 Delivery O2 Flow Rate FiO2 06/15/17 02:12 88 18 141/78 98 06/15/17 00:24 82 18 124/88 97 Room Air 06/14/17 23:48 100 20 152/106 96 Room Air 06/14/17 23:47 98 Room Air 06/14/17 23:47 98 Room Air 06/14/17 23:44 100 Room Air 06/14/17 23:39 88 06/14/17 23:38 36.4 92 18 147/101 100 Room Air Physical Exam VITALS: Vitals are noted on the nurse's note and reviewed by myself. Vital signs stable. GENERAL: This is a 31-year-old male, in no acute distress, nondiaphoretic, well- developed well-nourished. SKIN: The skin was without rashes. EARS: External auditory canals clear, tympanic membranes pearly caal without erythema or effusion bilaterally. EYES: Pupils equal round and reactive to light and accommodation. MOUTH: Mucous membranes moist. Tonsils are not enlarged. Pharynx without erythema or exudate. NECK: Supple without nuchal rigidity. No lymphadenopathy. HEART: Regular rate and rhythm without murmurs gallops or rubs. LUNGS: Clear to auscultation bilaterally without wheezes, rales or rhonchi. No retractions or accessory muscle use. ABDOMEN: Soft, nontender. MUSCULOSKELETAL: There is reproducible pain with palpation of the anterior left chest wall. NEURO: Patient was alert and oriented to person place and time. Medical Decision & Procedures ER Provider Diagnostic Interpretation: CHEST 1 VIEW: No acute cardiopulmonary abnormalities. No consolidation or pneumothorax. Laboratory Results 06/14/17 23:45 Red Blood Count 3.90, Mean Corpuscular Volume 100.0, Mean Corpuscular Hemoglobin 35.6, Mean Corpuscular Hemoglobin Concent 35.6, Mean Platelet Volume 9.8, Neutrophils (%) (Auto) 57.9, Lymphocytes (%) (Auto) 23.9, Monocytes (%) ( Auto) 10.6, Eosinophils (%) (Auto) 7.2, Basophils (%) (Auto) 0.2, Neutrophils # (Auto) 2.74, Lymphocytes # (Auto) 1.13, Monocytes # (Auto) 0.50, Eosinophils # ( Auto) 0.34, Basophils # (Auto) 0.01 06/14/17 23:45 Test 06/14/17 23:45 06/14/17 23:55 White Blood Count 4.73 K/uL (4.8-10.8) Red Blood Count 3.90 M/uL (4.7-6.1) Hemoglobin 13.9 g/dL (14.0-18.0) Hematocrit 39.0 % (42-52) Mean Corpuscular Volume 100.0 fL (80-100) Mean Corpuscular Hemoglobin 35.6 pg (25-34) Mean Corpuscular Hemoglobin Concent 35.6 g/dl (32-36) Platelet Count 163 K/uL (130-400) Mean Platelet Volume 9.8 fL (7.4-10.4) Neutrophils (%) (Auto) 57.9 % Lymphocytes (%) (Auto) 23.9 % Monocytes (%) (Auto) 10.6 % Eosinophils (%) (Auto) 7.2 % Basophils (%) (Auto) 0.2 % Neutrophils # (Auto) 2.74 K/uL (1.4-6.5) Lymphocytes # (Auto) 1.13 K/uL (1.2-3.4) Monocytes # (Auto) 0.50 K/uL (0.11-0.59) Eosinophils # (Auto) 0.34 K/uL (0-0.5) Basophils # (Auto) 0.01 K/uL (0-0.2) RDW Standard Deviation 43.6 fL (36.4-46.3) RDW Coefficient of Variation 12.1 % (11.5-14.5) Immature Granulocyte % (Auto) 0.2 % Immature Granulocyte # (Auto) 0.01 K/uL (0.00-0.02) Anion Gap 8.0 mmol/L (3-11) Est Creatinine Clear Calc Drug Dose 124.9 ml/min Estimated GFR () 130.6 Estimated GFR (Non- 112.7 BUN/Creatinine Ratio 13.6 (10-20) Calcium Level 8.9 mg/dl (8.5-10.1) Total Bilirubin 0.5 mg/dl (0.2-1) Aspartate Amino Transf (AST/SGOT) 15 U/L (15-37) Alanine Aminotransferase (ALT/SGPT) 22 U/L (12-78) Alkaline Phosphatase 69 U/L (45-117) Total Creatine Kinase 130 U/L (39-308) Creatine Kinase MB 0.7 ng/ml (0.5-3.6) Creatine Kinase MB Ratio 0.5 (0-3.0) Total Protein 8.0 gm/dl (6.4-8.2) Albumin 4.2 gm/dl (3.4-5.0) Globulin 3.8 gm/dl (2.5-4.0) Albumin/Globulin Ratio 1.1 (0.9-2) Bedside D-Dimer 367 ng/mlFEU (0-450) Bedside Troponin I < 0.030 ng/ml (0-0.045) ECG Per My Interpretation Indication: chest pain Rate (beats per minute): 88 Rhythm: normal sinus Findings: other (slightly widened QRS, RSR' in V1) Comparison ECG Date: no prior available ED Course The patient was evaluated as above. Labs were drawn and IV access was obtained. Patient was evaluated by myself as well as Dr. Ugarte and ultrasound of the heart was performed at bedside. Patient was reevaluated and findings were discussed. Discharge instructions were reviewed with the patient. The patient verbalized understanding of my assessment and treatment plan and was discharged home in good condition. Medical Decision Differential diagnosis includes acute coronary syndrome, pulmonary embolism, pneumothorax, pericarditis, myocarditis, endocarditis, anxiety, musculoskeletal pain, GERD, costochondritis, among others. The patient is a 31-year-old male who presents today complaining of left sided chest pain. Labs revealed no leukocytosis, anemia, or concerning electrolyte abnormalities. Troponin and D-dimer negative. EKG shows some abnormalities in V1 with slight widening of QRS, although no findings overtly suggestive of Brugada syndrome. Bedside ultrasound was performed by Dr. Ugarte and myself and shows no wall motion abnormalities, pericardial effusion, or valvular abnormalities. Patient's pain seems to be suggestive of musculoskeletal source , especially since symptoms are worsened with movement of the arm and with palpation of the area. Patient was advised to follow closely with the primary care provider for evaluation of EKG abnormalities as well as further workup of symptoms. He was advised to take Tylenol for pain. He will return here with worsening or new/concerning symptoms. The patient's case was reviewed with Dr. Ugarte, ED attending physician, who agreed with my assessment and treatment plan. Based on the patient's presentation and work up, I feel the patient is stable for outpatient treatment. The patient was educated to return to the emergency department for any worsening of their current condition or new/concerning symptoms. He will follow up with his PCP. Medication Reconcilliation Current Medication List: was personally reviewed by me Blood Pressure Screening Patient's blood pressure: Elevated blood pressure Blood pressure disposition: Elevated BP felt to be situational Impression Primary Impression: Chest wall pain Departure Information Dispostion Home / Self-Care Condition GOOD Referrals Alexandra Fletcher M.D. (PCP) Patient Instructions My [facility] Additional Instructions You have been treated in the Emergency Department for your Chest Pain. Laboratory results and Imaging Studies have ruled out any acute cardiac or pulmonary cause of your chest pain. For pain control, you can use the following exyu-ozu-hnndovg medicines (if >12 yo): - Regular strength (325mg/tab) Tylenol (acetaminophen) 2 tabs every 4-6 hours as needed. Do not exceed 12 tablets in a 24 hour period. Avoid taking more than 4 grams (4000 mg) of Tylenol per day. This includes any other sources of acetaminophen you may take on a regular basis. You should schedule a follow-up appointment with your Primary Care Provider in 2 -3 days for further evaluation from today's Emergency Department visit. Return to the Emergency Department if your current symptoms worsen despite treatment course outlined above, or if you develop any of the following symptoms : worsening chest pain, associated jaw/arm pain, nausea, dizziness, shortness of breath, bloody cough, or fainting.
[2017-06-15 02:12] VITALS: BP 141/78; PULSE 88; O2SAT 98
--- NOTE | 2017-06-15 06:39 | DIAGNOSTIC IMAGING REPORT ---
CHEST ONE VIEW PORTABLE HISTORY: 31 years-old Male chest pain acute atypical chest pain COMPARISON: Chest radiograph 01/23/2017 TECHNIQUE: Portable AP view of the chest FINDINGS: Cardiomediastinal and hilar silhouettes are within normal limits. No pneumothorax, pleural effusion, focal airspace consolidation or overt pulmonary edema. The bones of the chest appear grossly intact. Prior cholecystectomy. IMPRESSION: No acute process. The above report was generated using voice recognition software. It may contain grammatical, syntax or spelling errors. Electronically signed by: Aaron Patrick M.D. 06/15/2017 6:38 AM Dictated Date/Time: 06/15/2017 6:37 AM
== END 2017-06-15 02:13 | disposition home or self-care (01) ==
LOC: C.EDB 23:33 → C.EDA 06-15 02:13
DX: R07.89 Other chest pain (principal); J45.909 Unspecified asthma, uncomplicated; Z79.899 Other long term (current) drug therapy

== ENCOUNTER 2017-08-05 10:58 | Day surgery (SDC) | payer OTHER ==
--- NOTE | 2017-08-04 09:42 | History and Physical: Surg Cnt ---
History & Physical Date August 04, 2017. Chief Complaint polyps History of Present Illness The patient is a 31 year old male with complaints of recurrent nasal polyposis Past Medical/Surgical History Medical Problems: (1) Asthma (2) Kidney stone (3) Stomach ulcer Surgical Problems: (1) History of sinus surgery (2) S/P cholecystectomy Additional History Hepatic Disease: No Endocrine Disorder: No Kidney Disease: No Hypertension: No Heart Disease: No Bleeding Tendencies: No Infectious Diseases: No Allergies Coded Allergies: Aspirin (Verified Allergy, Severe, HIVES, WHEEZING, SOB, 06/14/17) NSAIDs (Verified Allergy, Severe, HIVES, WHEEZING, SOB, 06/14/17) Penicillins (Verified Allergy, Severe, HIVES, WHEEZING, SOB, 06/14/17) Sulfamethoxazole w/Trimethoprim (Verified Allergy, Severe, HIVES, WHEEZING , SOB, 06/14/17) Home Medications Scheduled Azelastine Hcl (Astelin Nasal [place]), 1-2 SPRAYS NA BID Beclomethasone Dipropionate (N (Qnasl), 2 SPRY SHLOMO DAILY Fluticasone Furoate-Vilanterol (Breo Ellipta 200-25 Mcg/INH), 1 PUFF INH BID Fluticasone Propionate (Nasal) (Flonase Allergy Relief), 2 SPRAYS SHLOMO BID Lansoprazole (Prevacid), 30 MG PO QAM Ranitidine (Zantac), 150 MG PO QAM Venlafaxine Hcl (Effexor), 37.5 MG PO QAM Scheduled PRN Albuterol (Ventolin Hfa), 2 PUFFS INH BID PRN for Shortness of Breath Rizatriptan Benzoate (Maxalt), 10 MG PO UD PRN for Migraine Physical Examination Skin: warm/dry, no rash Eyes: normal inspection, EOMI, sclerae normal ENT: normal ENT inspection, pharynx normal, + pertinent finding (polyposis) Head: normocephalic, atraumatic Neck: supple, no adenopathy, trachea midline Respiratory/Chest: lungs clear, normal breath sounds, no respiratory distress Cardiovascular: regular rate, rhythm, no edema, no murmur Abdomen / GI: normal bowel sounds, non tender Back: normal inspection Extremities: normal inspection, normal range of motion Neurologic/Psych: no motor/sensory deficits, alert, normal reflexes, oriented x 3 Diagnosis chronic sinusitis, polyposis Plan of Treatment endoscopic sinus surgery
[2017-08-04 13:27] VITALS: Ht 185.4 cm; Wt 72.7 kg
[~2017-08-05] VITALS: Ht 185.4 cm; Wt 72.7 kg
[~2017-08-05 10:58] MED LIST changes: +CEFAZOLIN 1000MG IV PUSH 7.5 ML IV SCH; +CEFAZOLIN SOD 1000MG/7.5 ML IV PUSH IV ONE; -EFF/375 PO; +EpINEphrine INJ 1MG/ML AMP 1 MG/ML AMP ONE; +LACTATED RINGER'S 1000ML 1,000 ML IV SCH; +LIDO 2%/EPINEPHRINE 1:100000 20 ML VIAL ONE; +LIDOCAINE 4% MPF SOAK 5 ML = 1 DOSE ONE; +MONT1TAB3 PO; -PRED20TA PO
[2017-08-05] MEDS ORDERED: LIDOCAINE 4% INH SOLN 4 ML BTL ONE (15:55)
[2017-08-05] MEDS ORDERED: LIDO 2%/EPINEPHRINE 1:100000 20 ML VIAL ONE (15:55)
[2017-08-05] MEDS ORDERED: GELATIN SPONGE 12-7MM ONE (15:55)
[2017-08-05] MEDS ORDERED: MIDAZOLAM HCL 1 MG/ML 2ML VIAL ONE (16:49)
[2017-08-05] MEDS ORDERED: FENTANYL CITRATE INJ 50 MCG/1 ML 2 ML VIAL ONE ×2 (16:49→18:07)
[2017-08-05] MEDS ORDERED: PROPOFOL IV EMULSION 10 MG/ML 20 ML VIAL ONE ×2 (16:51→17:13)
[2017-08-05] MEDS ORDERED: LIDOCAINE HCL 2% 2 ML VIAL (20MG/ML) ONE (16:51)
[2017-08-05] MEDS ORDERED: EpINEphrine HCL INJ 1 MG/ML 1ML SYRINGE ONE (16:52)
[2017-08-05] MEDS ORDERED: EpHEDrine SULFATE INJ 50 MG/ML AMP IV PRN (17:15)
[2017-08-05] MEDS ORDERED: ONDANSETRON INJ 2 MG/ML 2 ML VIAL IV PRN ×2 (17:15→18:15)
[2017-08-05] MEDS ORDERED: FENTANYL CITRATE INJ 50 MCG/1 ML 2 ML VIAL IV PRN (17:15)
[2017-08-05] MEDS ORDERED: ALBUTEROL 0.083% NEBU SOLN 3 ML VIAL INH PRN (17:15)
[2017-08-05] MEDS ORDERED: MEPERIDINE HCL 25 MG/ML CARP IV PRN (17:15)
[2017-08-05] MEDS ORDERED: ATROPINE SULFATE 0.1 MG/ML 5ML SYR IV PRN (17:15)
[2017-08-05] MEDS ORDERED: DEXAMETHASONE SOD INJ 4 MG/ML VIAL ONE (17:21)
[2017-08-05] MEDS ORDERED: ONDANSETRON INJ 2 MG/ML 2 ML VIAL ONE (17:21)
[2017-08-05] MEDS ORDERED: SODIUM CHLORIDE 0.9% 1000ML 1,000 ML IV SCH (18:01)
[2017-08-05] MEDS ORDERED: OXYC-57 PO (18:02)
--- NOTE | 2017-08-05 18:05 | Discharge Instructions ---
Discharge Instructions Date of Service August 05, 2017. Admission Reason for Admission: Chronic Sinusitis, Polyposis Discharge Discharge Diagnosis / Problem: same Discharge Goals Goal(s): Improve function Activity Recommendations Activity Limitations: per Instructions/Follow-up section . Instructions / Follow-Up Instructions / Follow-Up ACTIVITY RECOMMENDATIONS: * Being up and around is good, but no strenuous activity, heavy lifting or physical exertion for one week. * Keep your head elevated 30 degrees when lying down or sleeping. * Do not blow your nose for 48 hours, sniff back instead. * Avoid hot showers. OVER THE COUNTER MEDICATIONS: * You may use Tylenol * Avoid aspirin or aspirin containing products, e.g. as they may increase bleeding. SPECIAL CARE INSTRUCTIONS: * Expect to have bloody drainage from your nose and/or down your throat for one to three days. Change drip pad as needed. * Begin irrigating your nose with saline solution today, at least six to ten times per day and sniff back to help remove old clots or crust. * You may experience nasal and facial congestion, pain and pressure, this is normal. * Please call with any significant and/or progressive pain, redness, swelling around the eyes, visual changes, fever of 101.5 degrees F, active bleeding or any problems or concerns. * If active bleeding occurs, spray the nose three times at one minute intervals with Afrin spray and call or cell phone: . If unable to reach the doctor, go to the nearest Emergency Department. Special Diet: * Avoid extremely hot fluids. FOLLOW UP VISIT: Follow-up Visit with Dr. Frye If not already scheduled, please call to schedule. Current Hospital Diet Patient's current hospital diet: Discharge Diet Recommended Diet: Regular Diet Procedures Procedures Performed: Right and Left Frontal Ethmoidectomy with stent insertion Pending Studies Studies pending at discharge: no Medical Emergencies . Who to Call and When: Medical Emergencies: If at any time you feel your situation is an emergency, please call [phone] immediately. . Non-Emergent Contact Non-Emergency issues call your: Primary Care Provider . "Provider Documentation" section prepared by Jie Frye. . [place] Drug Monitoring Program Search Results: no issues identified
[2017-08-05] MEDS ORDERED: OXYCODONE/ACETAMINOPHEN 5-325 TAB PO PRN ×2 (18:15)
[2017-08-05 18:45] VITALS: BP 126/78; PULSE 70; TEMP 36.6; O2SAT 99
[2017-08-05 19:10] VITALS: BP 134/83; PULSE 68; TEMP 36.8; O2SAT 100
--- NOTE | 2017-08-05 19:10 | Anesthesiology Progress Note ---
Anesthesia Post Op Note Date & Time August 05, 2017 at 19:10 Vital Signs Pain Intensity: 3 Vital Signs Past 12 Hours Date Time Temp Pulse Resp B/P (MAP) Pulse Ox O2 Delivery O2 Flow Rate FiO2 08/05/17 18:40 36.6 70 17 137/81 100 Room Air 08/05/17 18:30 68 13 103/56 100 Room Air 08/05/17 18:20 84 14 140/86 100 Room Air 08/05/17 18:10 82 16 133/86 99 Oxymask 10 08/05/17 18:02 35.9 85 16 127/71 100 Oxymask 10 08/05/17 11:08 36.9 93 20 145/83 (103) 96 Room Air Notes Mental Status: alert / awake / arousable, participated in evaluation Pt Amnestic to Procedure: Yes Nausea / Vomiting: adequately controlled Pain: adequately controlled Airway Patency, RR, SpO2: stable & adequate BP & HR: stable & adequate Hydration State: stable & adequate Anesthetic Complications: no major complications apparent
--- NOTE | 2017-08-06 07:56 | OPERATIVE REPORT ---
DATE OF OPERATION: 08/05/2017 PREOPERATIVE DIAGNOSIS: Chronic sinusitis and polyposis. POSTOPERATIVE DIAGNOSIS: Chronic sinusitis and polyposis. PROCEDURE: Right and left frontal sinusotomy, right and left total ethmoidectomy. SURGEON: Jie Frye MD ANESTHESIA: General LMA. COMPLICATIONS: None. BLOOD LOSS: 20 mL. HISTORY OF PRESENT ILLNESS: A 31-year-old male with recurrent nasal polyposis blocking the ethmoids and nasofrontal ducts. DESCRIPTION OF PROCEDURE: The patient brought to the operating room and placed in supine position. General anesthesia was induced using an LMA, prepped with Betadine paint, draped in usual sterile manner. The nose was decongested using cottonoids with a solution of 4 mL of 4% Xylocaine mixed with 1 mL of epinephrine. Injection of 2% Xylocaine with 1:100,000 strength epinephrine was also used. The scar tissue at the axilla of the middle turbinate was removed using the upward Blakesley forceps along with polyps. The right nasofrontal duct was found using the guidewire and then dilated with the 6 mm Acclarent balloon opening up the right nasofrontal duct. The balloon was left inflated until the contour stent was loaded. Then the balloon was deflated and the contour stent was placed into the right nasofrontal duct. The residual polyps extending posteriorly and adhesions to the ethmoids were removed using the straight and upward Blakesley forceps, opening up the ethmoid cavity. The ethmoid cavity was then opened with a Propel stent. The left frontal sinusotomy and total ethmoidectomy was performed in a similar manner again placing the stents. The maxillary sinus was suctioned clean. The patient tolerated the procedure well and was taken to recovery area in satisfactory condition. I attest to the content of the Intraoperative Record and any orders documented therein. Any exception s are noted below.
== END 2017-08-05 19:15 | disposition home or self-care (01) ==
LOC: X.SURG 10:58 → C.ACU 19:15
PROVIDERS: ATTEND Otolaryngology
DX: J33.8 Other polyp of sinus (principal); J32.9 Chronic sinusitis, unspecified; J45.909 Unspecified asthma, uncomplicated; K25.9 Gastric ulcer, unspecified as acute or chronic, without hemorrhage or perforation; Z87.442 Personal history of urinary calculi; Z88.6 Allergy status to analgesic agent; Z88.0 Allergy status to penicillin; Z88.1 Allergy status to other antibiotic agents